=== PATIENT | male | born 1935 | race African-American/Black ===

== ENCOUNTER 2017-05-28 12:01 | Outpatient (CLI) | payer MEDICARE ==
--- NOTE | 2017-05-28 18:01 | RAD ---
CHEST TWO VIEWS: History: Dyspnea. Comparison: 10-05-16 FINDINGS: Cardiac silhouette and pulmonary vasculature are unremarkable. Coarsened interstitial markings are si milar in appearance to the prior study. Mediastinum is midline with post-operative changes, aortic ca lcification, and a dual-lead left subclavian cardiac electronic device. No lobar consolidation or pne umothorax are apparent. No pleural fluid. IMPRESSION: 1. Chronic type findings are stable. POS: [facility]
== END 2017-05-28 12:02 | disposition home or self-care (01) ==
LOC: RAD 12:01
PROVIDERS: ATTEND Internal Medicine Critical Care Medicine
DX: R06.00 Dyspnea, unspecified (principal)
CPT/HCPCS: 71020

== ENCOUNTER 2017-06-12 11:18 | Outpatient (CLI) | payer MEDICARE ==
--- NOTE | 2017-06-12 13:25 | RAD ---
ONE VIEW CHEST: TWO VIEWS ABDOMEN: 06/12/2017 COMPARISON: Offsite 05/28/2017 exam. FINDINGS: CHEST: Stable left-sided defibrillator. Stable sternotomy wires. Heart size is upper normal. Pulm onary vessels are within normal limits. Interstitial prominence, likely due to chronic change. No m ass. No consolidation. No pleural effusion or pneumothorax. ABDOMEN: Nonspecific bowel gas pattern. Scattered fecal material in a nondistended, nondilated colo n. No suspicious densities in the pelvis. There are densities projecting over the left and right re nal silhouette. Renal calculi cannot be completely excluded. No pneumoperitoneum. IMPRESSION: 1. No acute cardiopulmonary process. 2. Nonspecific bowel gas pattern. 3. Densities projecting over the left and right renal silhouette. Correlation made with CT from demonstrates vascular calcification in the region of the renal pelvis. POS: [facility]
== END 2017-06-12 11:19 | disposition home or self-care (01) ==
LOC: RAD 11:18
PROVIDERS: ATTEND Internal Medicine Gastroenterology
DX: K52.9 Noninfective gastroenteritis and colitis, unspecified (principal); R19.8 Other specified symptoms and signs involving the digestive system and abdomen; R10.31 Right lower quadrant pain; R06.2 Wheezing; E73.9 Lactose intolerance, unspecified
CPT/HCPCS: 74022

== ENCOUNTER 2017-11-15 10:57 | Outpatient (CLI) | payer MEDICARE | END 2017-11-15 10:58 | disposition home or self-care (01) | LOC: BICRAD 10:57 | PROVIDERS: ATTEND Internal Medicine Medical Oncology | DX: M76.22 Iliac crest spur, left hip (principal) | CPT/HCPCS: 72100; 72170 ==

== ENCOUNTER 2018-01-29 10:14 | Outpatient (CLI) | payer MEDICARE ==
--- NOTE | 2018-01-29 11:35 | RAD ---
CHEST TWO VIEWS: History: Dyspnea. Comparison: 05-28-17 FINDINGS: Cardiac silhouette and pulmonary vasculature remain upper limits of normal. Mediastinum midline with aortic calcification, post-operative changes, and a dual-lead left subclavian cardiac electronic abran ce. No lobar consolidation, pneumothorax, or pleural fluid. Wide spread reticular nodular interstitia l prominence is similar to the previous exam. IMPRESSION: Atherosclerosis. Chronic interstitial thickening. Chronic type findings are stable. POS: [facility]
== END 2018-01-29 10:15 | disposition home or self-care (01) ==
LOC: RAD 10:14
PROVIDERS: ATTEND Internal Medicine Critical Care Medicine
DX: R06.00 Dyspnea, unspecified (principal); I70.90 Unspecified atherosclerosis
CPT/HCPCS: 71046

== ENCOUNTER 2018-05-04 19:32 | Observation (INO) | payer MEDICARE ==
[2018-05-04 20:48] LABS: CKMB 4.4 ng/mL (0-6.6); Troponin I 0.027 ng/mL (< 0.028)
[2018-05-04] MEDS ORDERED: Acetaminophen 500 MG TAB ONE (21:00)
[2018-05-04 22:19] VITALS: BMI 28.3
[2018-05-05 00:03] LABS: Troponin I 0.022 ng/mL (< 0.028)
[2018-05-05] MEDS ORDERED: Senokot S 8.6-50 MG TAB PO PRN (00:17)
[2018-05-05] MEDS ORDERED: Ondansetron PF 4 MG/2 ML Vial IVP PRN (00:17)
[2018-05-05] MEDS ORDERED: Acetaminophen 325 MG TAB PO PRN (00:17)
[2018-05-05] MEDS ORDERED: Bisacodyl 5 MG TAB PO PRN (00:17)
--- NOTE | 2018-05-05 01:07 | PDOC.EVN ---
Event Note - Event Note Event Note: h&p dictation [id number]
--- NOTE | 2018-05-05 01:43 | HP ---
PRIMARY CARE PHYSICIAN: Erik Mejia DO FLOTATION TANK OPERATOR: Evelin Huffman MD UTILIZATION REVIEW NURSE: Isael Luz MD CHIEF COMPLAINT: Shortness of breath, particularly dyspnea with exertion. HISTORY OF PRESENT ILLNESS: This is an 83-year-old male with a known history of coronary artery dise ase, status post CABG x4, AICD placement; hypertension; asbestosis who presents with a 3 to 4-day his tory of progressive dyspnea on exertion with some chest pressure. The patient states that his sympto ms started after corn picking approximately 4 days ago and he had concomitant left-sided shoulder and neck pain as well. The patient states that his exertional pain and his musculoskeletal neck and rocco ulder pain are worse with movement and exertion. He has had prior similar episodes, but none "quite so bad." REVIEW OF SYSTEMS: As per HPI. Constitutional: The patient denies any overt fevers or chills. Den ies any significant weight loss or gain over the last 2 months. HEENT: No headaches, no vision maurer ges. No lightheadedness or dizziness at this point in time. Cardiovascular: Chest pain as describe d above. Dyspnea with exertion as described above. He has also got pinpoint reproducible musculoske letal wall discomfort along his left L5-L6 intercostal spaces. Respiratory: As per above. The delores ent also endorses having had a little bit of a "cold" that he is now getting over, over the last 4 to 5 days. Otherwise, no active congestion. Gastrointestinal: Denies any nausea, vomiting, abdominal pain. Denies any issues with constipation or diarrhea. Genitourinary: Denies any dysuria or navas es in urinary frequency, quality, quantity, or odor. Musculoskeletal: No new myalgias or arthralgia s other than that noted above. Remainder of the review of systems is otherwise negative. PAST MEDICAL HISTORY: As per HPI above and includes, 1. Hypertension. 2. Hyperlipidemia. 3. AICD placement for possible congestive heart failure. 4. Gastroesophageal reflux disease. 5. BPH. 6. Coronary artery disease, status post CABG. 7. Status post appendectomy. 8. Status post cholecystectomy. 9. Status post left foot surgery. 10. Status post back surgery. 11. The patient endorses a history of asbestosis, for which he sees Pulmonary Medicine. HOME MEDICATIONS: As per EMR. The patient's list currently includes the following: Tramadol 50 mg p.o. q.i.d. p.r.n., tamsulosin 0.4 mg p.o. at bedtime, rosuvastatin 20 mg p.o. at bedtime, ranitidine 300 mg p.o. b.i.d., potassium chloride 10 mEq p.o. daily, pantoprazole 40 mg p.o. daily, lisinopril 10 mg p.o. daily, furosemide 40 mg p.o. daily, finasteride 5 mg p.o. at bedtime, clopidogrel 75 mg p. o. daily, carvedilol 12.5 mg p.o. b.i.d., aspirin 325 mg p.o. daily, albuterol sulfate 90 mcg inhalat ion daily. FAMILY HISTORY: Denies any known history of cardiovascular disease, but does have a family history o f diabetes. ALLERGIES: IODINE. SOCIAL HISTORY: The patient is . He wishes to be FULL CODE at this point in time, but would not want to be maintained indefinitely on machine. Denies any active tobacco, alcohol, or illicit dr ug use. PHYSICAL EXAMINATION: GENERAL: The patient is awake, alert, conversant, in no acute distress, lying in the hospital bed. HEENT: Normocephalic, atraumatic. Equal ocular motions are intact. Moist mucous membranes. CARDIOVASCULAR: S1, S2. No murmurs, rubs, or gallops. Pulses 2+ in bilateral upper extremities. N o pitting pedal edema. RESPIRATORY: Coarse throughout, but reasonable air movement. No wheezes, rales, or rhonchi. ABDOMEN: Positive bowel sounds. Soft and nontender to palpation. LABORATORY DATA AND IMAGIN05/04/2018 chest x-ray impression: "Unremarkable AP view of chest." W BC 5.7, hemoglobin 15.1, hematocrit 45, platelets 203, neutrophils 85.3. Sodium 138, potassium 4.6, chloride 107, bicarbonate 21, creatinine 1.36, glucose 206, calcium 9.2, total bilirubin 0.4, AST 19, ALT 20, alkaline phosphatase 53. Troponin is 0.033, followup 0.022. BNP 329 with a prior BNP value s typically anywhere ranging from 100s to upper 200s for the patient. ASSESSMENT AND PLAN: An 83-year-old male presenting with a chief complaint of dyspnea with exertion. 1. Dyspnea with exertion, which is currently improved status post [facility] [place]. The patient presumably has a history of heart failure. He has an AICD p laced. He has a prior history of coronary artery disease. I suspect that the patient has some outpa tient echocardiograms, but I am not clear how recent they are. I appreciate Cardiology consultation. Repeat troponin, EKG in the morning, echocardiogram 2D. The patient's home medications are current ly being verified with the patient's pharmacy. In the meantime, we will continue with furosemide 20 mg IV b.i.d. along with low-dose lisinopril, carvedilol, aspirin, and statin. 2. Question of perhaps whether or not there is a pulmonary component to the patient's presentation. Continue to closely monitor. The patient is currently not hypoxic. 3. Hypertension, stable. Continue home regimen. 4. Diet: Cardiac. 5. Activity: As tolerated. 6. Deep venous thrombosis prophylaxis with enoxaparin.
[2018-05-05 03:18] LABS: Troponin I 0.026 ng/mL (< 0.028)
[2018-05-05 05:12] LABS: #Eosinphils 0.1 thou/uL (0.0-0.7); #Lymphocytes 1.3 thou/uL (1.20-3.40); #Neutrophils 5.9 thou/uL (1.40-6.50); %Basophils 0.2 % (0.0-1.0); %Eosinophils 0.8 % (0.0-10.0); %Lymphocytes 15.7 % (21.0-51.0); %Monocytes 12.3 % (0.0-10.0); %Neutrophils 71.1 % (42.0-75.0); Hemoglobin 13.8 g/dL (14.0-18.0); Mean Corpuscular HGB CONC 31.7 g/dL (32.0-36.0); Mean Corpuscular Hemoglobin 29.2 pg (27.0-31.0); Mean Corpuscular Volume 92.1 fL (78.0-98.0); Mean Platelet Volume 8.3 fL (7.4-10.4); Platelet Count 209 thou/uL (130-400); RBC Distribution Width 14.1 % (11.5-14.5); Red Blood Cell (RBC) Count 4.72 mill/uL (4.70-6.10); White Blood Cell (WBC) Count 8.4 thou/uL (4.8-10.8)
[2018-05-05 05:24] LABS: Anion Gap 11 mmol/L (10-20); BUN (Urea Nitrogen) 17 mg/dL (8.4-25.7); Calc. Creatinine Clearance 55 mL/min (70-130); Calcium 8.9 mg/dL (7.8-10.44); Carbon Dioxide 25 mmol/L (23-31); Chloride 105 mmol/L (98-107); Estimated GFR-MDRD 69; Glucose 132 mg/dL (83-110); Potassium 4.1 mmol/L (3.5-5.1); Sodium 137 mmol/L (136-145)
[2018-05-05] MEDS ORDERED: Naproxen 500 MG TAB PO PRN (05:25)
[2018-05-05] MEDS: Furosemide 20 MG/2 ML VIAL SLOW IVP SCH ×2 (05:30→14:11)
[2018-05-05] MEDS: Lisinopril 2.5 MG TAB PO SCH (08:04)
[2018-05-05] MEDS: Carvedilol 3.125 MG TAB PO SCH ×2 (08:04→20:59)
[2018-05-05] MEDS: Famotidine/PF 20 mg/2ml Vial SLOW IVP SCH ×2 (08:05→21:01)
[2018-05-05] MEDS: Enoxaparin Sodium 40 MG/0.4 ML SYRINGE SC SCH (08:05)
--- NOTE | 2018-05-05 11:00 | PDOC.EVN ---
Event Note - Event Note Event Note: Pt seen and examined.chart reviewed. reports that he feels about the same.Has Significant SOB at home when he bends down or walks. VSS CTA B/L.no wheezing RRR ECHO ordered. cardiology & PCCM recs requested.Will follow Cont Lasix BID for now but doubt much Edema.May be worsening of Chr lung disease. HD stable. will follow
--- NOTE | 2018-05-05 12:13 | CON ---
DATE OF CONSULTATION: 05/05/2018 REASON FOR CONSULTATION: Shortness of breath. HISTORY OF PRESENT ILLNESS: Mr. Patrick Kang is a very pleasant 83-year-old gentleman whose primary lead developer is Dr. Evelin Huffman. He was last seen in the hospital in 2016. He has a previous his tory of CAD, status post bypass surgery in addition to a defibrillator. He states his shortness of b reath began in the last several days. No changes in diet present. He had had no lower extremity carol ma, PND, or orthopnea present. He also complained of having weakness in his legs bilaterally. He lloyd s a history of asthma in addition to asbestosis in addition congestive heart failure. His BNP was 32 9. PAST MEDICAL HISTORY: As above including hypertension. ALLERGIES: IODINE. MEDICATIONS: Aspirin, Coreg, Plavix, Lasix, Crestor, and Symbicort. SOCIAL HISTORY: No current tobacco or alcohol use. REVIEW OF SYSTEMS: Ten-point review of systems is reviewed and as above, otherwise negative. PHYSICAL EXAMINATION: GENERAL: Patient is a pleasant male/female who is in no acute distress. The patient appears his/her stated age. VITAL SIGNS: Blood pressure 125/64, pulse 70, temperature 98. NEUROLOGIC: The patient is alert and oriented times 3 with no focal neurologic deficits. HEENT: Sclerae without icterus. Mouth has moist mucous membranes with normal pallor. NECK: No JVD. Carotid upstroke brisk. No bruits bilaterally. LUNGS: Minimal crackles noted bilaterally. BACK: No scoliosis or kyphosis. CARDIAC: Regular rate and rhythm with normal S1 and S2. No S3 or S4 noted. No significant rubs, murmurs, thrills, or gallops noted throughout the precordium. PMI is not displaced. There is no parasternal heave. ABDOMEN: Soft, nontender, nondistended. No peritoneal signs present. No hepatosplenomegaly. No abnormal striae. EXTREMITIES: 2+ femoral and 2+ dorsalis pedis pulses. No cyanosis, clubbing, or edema. SKIN: No gross abnormalities. LABORATORY DATA: Hemoglobin 13.8, glucose 132. Sodium 137, potassium 4.1, creatinine 1.2. IMPRESSION: 1. Shortness of breath. 2. Leg weakness. 3. Coronary artery disease. 4. Status post Implantable Cardioverter-Defibrillator. 5. Ischemic cardiomyopathy. 6. Status post bypass surgery. RECOMMENDATIONS: From a CV standpoint, he states he has improved. He was given Lasix with improveme nt in shortness of breath. His shortness of breath may be multifactorial given a BNP of 329. He laughlin s have asthma in addition to asbestosis. Dr. Luz has been consulted. Otherwise, I have no further recommendations.
[2018-05-05] MEDS ORDERED: methylPREDNISolone Sod Succ/PF 125 MG/2 ML VIAL IVP SCH (13:45)
--- NOTE | 2018-05-05 19:27 | CON ---
DATE OF CONSULTATION: 05/05/2018 I follow him for asthmatic bronchitis. He also has obesity and deconditioning. He is also followed by Dr. Huffman. He presented with 3 days of progressive shortness of breath. He was out picking up pecans and says he reached a point where he could no longer breathe and subsequently was admitted here. He says, he feels 100% better than when he did on admission. PAST MEDICAL HISTORY: Remarkable for, 1. Hypertension. 2. He has moderate obstructive defect with mixed restriction secondary to his obesity on pulmonary function tests. 3. Increase interstitial markings. In chest radiograph, it has not been progressive, arguing against him having a diagnosis of asbestosis (he has a history of an exposure). 4. History of coronary artery disease. 5. Coronary artery bypass grafting in the past. 6. History of ventricular tachycardia with defibrillator placement in the past. 7. History of cardiac catheterization in 2002 showing patent grafts. 8. History of reflux disease. 9. Renal insufficiency. 10. History of syncope. ALLERGIES: Reports an allergy to IODINE. SOCIAL HISTORY: He is a former smoker, does not drink, very supportive . FAMILY HISTORY: Negative for lung disease in early age. REVIEW OF SYSTEMS: Ten points otherwise negative. PHYSICAL EXAMINATION: VITAL SIGNS: He is afebrile, heart rate 70, respiratory rate 16, oximetry is 93 on room air. Blood pressure 125/64. LUNGS: Free of wheezes. I do not hear any crackles. HEART: Regular rhythm. S1 and S2 are normal. ABDOMEN: Soft and nontender. EXTREMITIES: Without clubbing, cyanosis, or edema. LABORATORY DATA: White count 8.4, hemoglobin 13.8, platelets 209,000. Electrolytes are normal. BNP yesterday was 329. IMPRESSION: 1. Asthmatic bronchitis. He is clinically improved. 2. History of coronary artery bypass grafting with patent grafts in the past. 3. History of defibrillator. 4. Ischemic cardiomyopathy. It is unclear whether or not Lasix alone contributed to his improvement or the nebulizer treatments, decreased shortness of breath. In any event, he is clinically improved. We will be happy to follow with the other physicians caring for him. Chest radiograph review done in [place] yesterday afternoon did not really show clear cut pulmonary edema, so it may be that this is more asthmatic bronchitis mediated. [facility]
[2018-05-06 05:13] LABS: Anion Gap 12 mmol/L (10-20); BUN (Urea Nitrogen) 21 mg/dL (8.4-25.7); Calc. Creatinine Clearance 50 mL/min (70-130); Carbon Dioxide 24 mmol/L (23-31); Chloride 102 mmol/L (98-107); Estimated GFR-MDRD 61; Glucose 220 mg/dL (83-110); Magnesium 2.1 mg/dL (1.6-2.6); Phosphorus 2.7 mg/dL (2.3-4.7); Potassium 4.2 mmol/L (3.5-5.1); Sodium 134 mmol/L (136-145)
[2018-05-06] MEDS: Furosemide 20 MG/2 ML VIAL SLOW IVP SCH (06:34)
--- NOTE | 2018-05-06 07:11 | PRG ---
DATE OF SERVICE: 05/06/2018 SUBJECTIVE: He says he is feeling much better. OBJECTIVE: VITAL SIGNS: He is afebrile, heart rate is 82, respiratory rate is 19, oximetry is 94% on room air, blood pressure 132/70. LUNGS: Clear. HEART: Regular rhythm. ABDOMEN: Soft and nontender. LABORATORY DATA: There is no CBC today. Sodium 134, potassium 4.2, chloride 102, bicarbonate 24, BU N 21, creatinine 1.34 up from 1.21, glucose 220. IMPRESSION: 1. Asthmatic bronchitis. 2. History of diastolic dysfunction. Echocardiogram is reviewed. His left ventricular systolic is still normal. He does have moderate mitral regurgitation, which may have contributed opinion to some of his symptoms. I feel this is more of a pulmonary problem consistent with past outpatient episode s. We will continue with current care. He can probably be switched to p.o. diuretics. We will continue with his nebulizer treatments, which he feels are helping. Place him on some prednisone today.
[2018-05-06] MEDS ORDERED: predniSONE 20 MG TAB PO SCH (08:00)
[2018-05-06] MEDS: Famotidine/PF 20 mg/2ml Vial SLOW IVP SCH (08:29)
[2018-05-06] MEDS: Carvedilol 3.125 MG TAB PO SCH (08:29)
[2018-05-06] MEDS: Enoxaparin Sodium 40 MG/0.4 ML SYRINGE SC SCH (08:29)
[2018-05-06] MEDS: Lisinopril 2.5 MG TAB PO SCH (08:29)
[2018-05-06] MEDS ORDERED: Non-Formulary Item 1 EACH (Omeprazole [Omeprazole] 20 MG) PO PRN (08:37)
[2018-05-06] MEDS ORDERED: traMADol HCl 50 MG TAB PO PRN (08:37)
[2018-05-06] MEDS ORDERED: Lisinopril 10 MG TAB PO PRN (08:37)
[2018-05-06] MEDS ORDERED: Nitroglycerin 0.4 MG TAB (25 Tab Bottle) SL PRN (08:37)
[2018-05-06] MEDS ORDERED: Clopidogrel Bisulfate 75 MG TAB PO SCH (09:00)
[2018-05-06] MEDS ORDERED: CARVEDILOL 18.75 MG PO SCH (09:00)
[2018-05-06] MEDS ORDERED: Potassium Chloride 10 MEQ TAB PO SCH (09:00)
[2018-05-06] MEDS ORDERED: Aspirin 325 MG TAB PO SCH (09:00)
[2018-05-06] MEDS ORDERED: Furosemide 20 MG TAB PO SCH (09:00)
[2018-05-06 11:41] VITALS: BP 135/77; TEMP 98.2
--- NOTE | 2018-05-06 12:02 | EKG ---
Test Reason : ROUTINE Blood Pressure : / mmHG Vent. Rate : 068 BPM Atrial Rate : 068 BPM P-R Int : 188 ms QRS Dur : 094 ms QT Int : 440 ms P-R-T Axes : 031 031 218 degrees QTc Int : 467 ms Normal sinus rhythm Prolonged QT Abnormal ECG Confirmed by SUSY WELDON ([id number]) on 05/06/2018 12:02:03 PM Referred By: ERINN Confirmed By:SUSY WELDON
--- NOTE | 2018-05-06 13:44 | DIS ---
DATE OF ADMISSION: 05/05/2018 DATE OF DISCHARGE: 05/06/2018 CONDITION AT THE TIME OF DISCHARGE: Stable and improved. PRIMARY CARE PHYSICIAN: Erik Mejia D.O. PRIMARY BELLING MACHINE OPERATOR: Isael Luz M.D. DISCHARGE DIAGNOSES: 1. Shortness of breath, likely mild fluid overload versus reactive airway disease with and without a sthmatic bronchitis. 2. Hypertension. 3. History of coronary artery disease. 4. Chronic diastolic congestive heart failure. INHOUSE CONSULTATIONS: 1. Cardiology, Adama Temple M.D. 2. Pulmonary Medicine, Isael Luz M.D.. PROCEDURES DONE IN THE HOSPITAL: Transthoracic echocardiogram, which shows EF of 55-60%, moderate mi tral regurgitation and left atrial dilatation. DISCHARGE MEDICATIONS: Remain the same as admission medication. Please see his H&P for further deta il. NEW MEDICATIONS: Medrol Dosepak 1 pack as directed. The patient has nebulizers at home which he eliceo l continue to use. HISTORY OF PRESENTING ILLNESS: Mr. 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 He reported that this has been mostly the case, but it was getting worse for the last few days. Upon presentation, he was hemodynamically stable and his chest x-ray in initial workup was rather unremarkable. His BNP was 329 and his CBC shows WBCs at 5.7. Hi s serum creatinine was 1.36. Chest x-ray and EKG were rather unremarkable. He was admitted with a p resumptive diagnosis of mild acute on chronic diastolic congestive heart failure. Please see admissi on history and physical for further details. Cardiology and Pulmonary Medicine were consulted. HOSPITAL COURSE: The patient's symptoms quickly improved with some diuresis. His Lasix was changed to oral eventually. His serial cardiac enzymes were trended and remained within normal limits. Dr. Temple from Cardiology saw him and agreed with continuation of diuresis for a short period of time and then outpatient followup. Echocardiogram was done which showed findings consistent with possibl e diastolic congestive heart failure. He was also seen by Pulmonary Medicine, Dr. Luz, who added steroids and continue nebulizers. As of this morning, the patient is back to his baseline and is saturating anywhere from 94-96% on latoya m air and is hemodynamically stable. He will be discharged with outpatient followup with both Dr. Dharmesh martinez and Dr. Luz. Prescription for Medrol Dosepak was provided as per Dr. Luz's instruction. He was seen and examined prior to discharge. PHYSICAL EXAMINATION: VITAL SIGNS: Temperature 98.2, pulse 84, respirations 24, saturating 94% on room air, blood pressure 135/77. GENERAL: No acute distress. Awake, alert, oriented x3. CHEST: Clear to auscultation bilaterally. No wheezing. Rate and rhythm is regular. EXTREMITIES: Free of any edema.
[2018-05-06] MEDS ORDERED: Rosuvastatin 10 MG TAB PO SCH (21:00)
[2018-05-06] MEDS ORDERED: Carvedilol 6.25 MG TAB PO SCH (21:00)
[2018-05-06] MEDS ORDERED: Tamsulosin HCl 0.4 MG CAP PO SCH (21:00)
[2018-05-06] MEDS ORDERED: Rosuvastatin 20 MG TAB PO SCH (21:00)
== END 2018-05-06 15:20 | disposition home or self-care (01) ==
LOC: ERS 19:32 → 2SW 21:53
PROVIDERS: ADMIT Internal Medicine; ATTEND Internal Medicine
DX: R06.02 Shortness of breath (principal); R07.89 Other chest pain; I25.10 Atherosclerotic heart disease of native coronary artery without angina pectoris; J61 Pneumoconiosis due to asbestos and other mineral fibers; E78.5 Hyperlipidemia, unspecified; K21.9 Gastro-esophageal reflux disease without esophagitis; N40.0 Benign prostatic hyperplasia without lower urinary tract symptoms; I25.5 Ischemic cardiomyopathy; J45.909 Unspecified asthma, uncomplicated; I11.0 Hypertensive heart disease with heart failure; I50.32 Chronic diastolic (congestive) heart failure; R29.91 Unspecified symptoms and signs involving the musculoskeletal system; E66.9 Obesity, unspecified; Z68.28 Body mass index [BMI] 28.0-28.9, adult; Z87.891 Personal history of nicotine dependence; Z79.02 Long term (current) use of antithrombotics/antiplatelets; Z79.82 Long term (current) use of aspirin; Z79.899 Other long term (current) drug therapy; Z91.041 Radiographic dye allergy status; Z95.1 Presence of aortocoronary bypass graft; Z95.810 Presence of automatic (implantable) cardiac defibrillator
CPT/HCPCS: 80048 ×2; 82553; 83735; 84100; 84484 ×2; 85025; 93005 ×2; 93306; 94640 ×3; 96372; 96374; 96375; 96376 ×2; 99285; G0378 ×2; 36415; 90471; 90662; 93010; G0008; J1650; J1940; J2930; J7506; J7620; S0028

== ENCOUNTER 2018-09-19 09:16 | Outpatient (CLI) | payer MEDICARE ==
--- NOTE | 2018-09-19 12:05 | CT ---
CT OF THE TEMPORAL BONES: DATE: 09/19/2018. COMPARISON: None. HISTORY: Sensorineural hearing loss bilaterally. TECHNIQUE: Axial CT imaging is obtained at 0.63 mm intervals through the temporal ones without contrast media. Coronal reformatted imaging provided. FINDINGS: There is atherosclerotic calcification of the cavernous carotid arteries. There is prominent degener ative change at the atlantoaxial interspace. There is atherosclerotic calcification of the distal ve rtebral arteries bilaterally. RIGHT TEMPORAL BONE: The internal auditory canal, cochlea, vestibule, vestibular aqueduct, and semicircular canals appear grossly unremarkable. The course of the facial nerve appears grossly unremarkable. Vascular foramina appear within normal limits. The tympanic cavity, mastoid air cells, and aditus ad antrum appear well aerated. The ossicles appear intact. Prussak's space is clear. The scutum is sharp. No evidence for osseous dehiscence. LEFT TEMPORAL BONE: The internal auditory canal, cochlea, vestibule, vestibular aqueduct, and semicircular canals appear grossly unremarkable. The course of the facial nerve appears normal. The mastoid air cells, tympanic cavity, and aditus ad antrum are well aerated. The ossicles appear i ntact. The vascular foramina appear grossly unremarkable. There is degenerative change at the temporomandibular joint. Prussak's S space is clear and the scutum is sharp. No evidence for osseous dehiscence. IMPRESSION: No abnormality noted to explain a sensorineural hearing loss. Incidental findings as detailed above. POS: [facility]
== END 2018-09-19 09:17 | disposition home or self-care (01) ==
LOC: CT 09:16
PROVIDERS: ATTEND Specialist
DX: H90.3 Sensorineural hearing loss, bilateral (principal)
CPT/HCPCS: 70480

== ENCOUNTER 2019-01-14 08:35 | Outpatient (CLI) | payer MEDICARE ==
--- NOTE | 2019-01-14 10:37 | RAD ---
CHEST 2 VIEWS: INDICATION: History of dyspnea. COMPARISON: Prior single view of the chest dated 11/04/2018. FINDINGS: Chronic lung changes and cardiomegaly are stable. AICD is unchanged. No confluent airspace opacity or pleural effusion is noted. Surgical clips are present within the right upper quadrant. IMPRESSION: Stable examination. POS: [facility]
== END 2019-01-14 08:36 | disposition home or self-care (01) ==
LOC: RAD 08:35
PROVIDERS: ATTEND Internal Medicine Critical Care Medicine
DX: R06.00 Dyspnea, unspecified (principal)
CPT/HCPCS: 71046

== ENCOUNTER 2019-04-20 11:18 | Inpatient (IN) | payer MEDICARE ==
[2019-04-20 14:36] LABS: CKMB 102.2 ng/mL (0-6.6)
[2019-04-20] MEDS ORDERED: Ondansetron ODT 4 MG TAB SL PRN (16:00)
[2019-04-20] MEDS ORDERED: Ondansetron PF 4 MG/2 ML Vial IVP PRN (16:00)
[2019-04-20] MEDS ORDERED: Furosemide 40 MG/4 ML VIAL SLOW IVP SCH (16:15)
[2019-04-20 16:25] VITALS: BMI 27.4
[2019-04-20] MEDS ORDERED: Morphine 4 MG/ML VIAL SLOW IVP PRN (16:49)
[2019-04-20] MEDS ORDERED: PROVENTIL INHALER 6.7 G (200 INHALATIONS) INH PRN (17:11)
--- NOTE | 2019-04-20 18:21 | HP ---
PRIMARY CARE PHYSICIAN: Dr. Mejia. ELECTRICIAN STATION ASSISTANT: Dr. Huffman. SUPERVISOR FUNCTIONAL TESTING: Dr. Luz. CHIEF COMPLAINT: Chest pain, shortness of breath, dyspnea on exertion. HISTORY OF PRESENT ILLNESS: Mr. Nguyen is an 84-year-old man with past medical history of hypertension, hyperlipidemia, coronary artery disease, status post CABG with an AICD in place, gastroesophageal reflux disease, presented to an outside [place] ED earlier today due to worsening chest pain, shortness of breath, and generalized weakness over the last two days, he states that the pain started about Sunday, got better Sunday morning, however, worsened throughout Sunday night and through this morning. When he was seen in [place], it was determined the patient had suffered an NSTEMI with elevated cardiac enzymes of 8.017. The patient was treated with a therapeutic dose of Lovenox, IV Lasix 20 mg, full-dose aspirin, and nitroglycerin. The patient's symptoms resolved, and he was transferred to [facility] for further management of his current condition. Upon arriving, the patient denied any fever, chills, any headache, blurred vision, dizziness, any chest pain, palpitations, shortness of breath, abdominal pain, nausea, or vomiting. The patient remained on 2 L of oxygen via nasal cannula, and his cardiac enzymes trended up to 13.083 and CK-MB elevated at 102.2, Dr. Leblanc, admissions specialist, was then consulted to follow along with the patient's case. REVIEW OF SYSTEMS: All other systems reviewed and found to be negative unless mentioned in the HPI. PAST MEDICAL HISTORY: Hypertension, hyperlipidemia, coronary artery disease, gastroesophageal reflux disease, BPH, and CHF. PAST SURGICAL HISTORY: Appendectomy, AICD placement, cholecystectomy, left foot surgery, back surgery, coronary artery bypass graft surgery x4 vessels. PSYCHIATRIC HISTORY: None. SOCIAL HISTORY: The patient denies alcohol, tobacco, or illicit drug use. He is a former smoker, but quit about 35 years ago. KNOWN ALLERGIES: Iodine. CURRENT HOME MEDICATIONS: 1. Clopidogrel 75 mg daily. 2. Furosemide 20 mg daily. 3. Nitroglycerin 0.4 mg sublingual q.5 minutes as needed for chest pain. 4. Rosuvastatin 20 mg q.h.s. 5. Tizanidine 2 mg t.i.d. 6. Albuterol sulfate 90 mcg inhalation b.i.d. 7. Carvedilol 12.5 mg daily. 8. Ipratropium/albuterol 3 mL nebulizer q.6 hours. 9. Lisinopril 2.5 mg daily. 10. Tamsulosin 0.4 mg daily. PHYSICAL EXAMINATION: VITAL SIGNS: Blood pressure 126/76, pulse 87, respirations 18, temperature 97.5, and O2 saturation 97% on 2 L of oxygen via nasal cannula. GENERAL: The patient is awake, alert, and oriented x3. He is currently lying comfortably in bed and in no acute distress. HEENT: Atraumatic and normocephalic. Pupils are round and reactive to light. Extraocular muscles intact. Moist mucous membranes noted. The patient is hard of hearing. NECK: Soft, supple, trachea midline. CARDIOVASCULAR: Positive S1 and S2. Regular rate and rhythm. No murmur auscultated. RESPIRATORY: Coarse breath sounds heard bilaterally with expiratory wheezing noted. ABDOMEN: Soft, nontender, bowel sounds present. MUSCULOSKELETAL: Strength 5+ bilaterally in upper and lower extremities. Moves all extremities equal. Pedal and radial pulses 2+ bilaterally. No edema noted. NEUROLOGIC: Strength 5+ bilaterally in upper and lower extremities. Cranial nerves 2 through 12 grossly intact. No focal deficits noted. Speech intact and normal. Gait not assessed. The patient is quite hard of hearing. SKIN: Warm, dry, and intact. No rashes. No ulceration noted. PSYCHIATRIC: Good mood and affect. LABORATORY DATA: WBC 4.5, RBC 4.77, hemoglobin 13.7, hematocrit 44.9, and platelets 202. Sodium 140, potassium 3.9, anion gap 15, BUN 12, creatinine 1.60, estimated GFR 50. CK-MB 102.2. Troponin 8.017, trended up to 13.083. DIAGNOSTIC IMAGING: Portable chest x-ray showed signs of congestive heart failure with an AICD in place. ASSESSMENT AND PLAN: 1. Lmc-XL-fnhfhlwft myocardial infarction. The patient's cardiac enzymes were elevated, first was 8.017, which had trended up to 13.083, CK-MB 102.2. The patient was treated with therapeutic dose of Lovenox, aspirin, and nitro, we will also start on IV morphine as needed for pain. Cardiology, Dr. Leblanc, is also consulted, we will obtain an echocardiogram and recheck labs and an EKG in the morning. Currently, the patient is asymptomatic and is currently chest pain free. 2. Congestive heart failure exacerbation. He will be treated symptomatically with IV furosemide 20 mg b.i.d. 3. Hypertension. 4. Hyperlipidemia. 5. History of coronary artery disease, status post coronary artery bypass grafting x4 vessel, as above consult Cardiology for further recommendations. 6. Deep venous thrombosis and gastrointestinal prophylaxis. 7. Code status, full code. 8. Surrogate decision maker is his , Joo Nguyen. DISPOSITION: Pending further workup, clinical findings, and the patient's progress. Job ID: [id number]
[2019-04-20] MEDS: Atorvastatin Calcium 40 MG TAB PO SCH (20:29)
[2019-04-20] MEDS: Enoxaparin Sodium 80 MG/0.8 ML SYRINGE SC SCH (20:29)
[2019-04-21 06:04] LABS: #Eosinphils 0.3 thou/uL (0.0-0.7); #Lymphocytes 1.7 thou/uL (1.20-3.40); #Monocytes 0.7 thou/uL (0.11-0.59); #Neutrophils 2.4 thou/uL (1.40-6.50); %Basophils 0.4 % (0.0-1.0); %Eosinophils 5.5 % (0.0-10.0); %Lymphocytes 32.6 % (21.0-51.0); %Monocytes 13.9 % (0.0-10.0); %Neutrophils 47.6 % (42.0-75.0); Hemoglobin 14.6 g/dL (14.0-18.0); Mean Corpuscular Hemoglobin 30.5 pg (27.0-31.0); Mean Corpuscular Volume 92.3 fL (78.0-98.0); Mean Platelet Volume 8.2 fL (7.4-10.4); Platelet Count 210 thou/uL (130-400); RBC Distribution Width 13.7 % (11.5-14.5); Red Blood Cell (RBC) Count 4.78 mill/uL (4.70-6.10)
[2019-04-21 06:37] LABS: Anion Gap 15 mmol/L (10-20); BUN (Urea Nitrogen) 12 mg/dL (8.4-25.7); Calc. Creatinine Clearance 51 mL/min (70-130); Calcium 9.3 mg/dL (7.8-10.44); Carbon Dioxide 21 mmol/L (23-31); Cardiac Risk 3.7 (Less than 4.5); Chloride 105 mmol/L (98-107); Cholesterol 126 mg/dl (< 200 Desired); Estimated GFR-MDRD 66; Glucose 96 mg/dL (83-110); HDL Cholesterol 34 mg/dL (>60 Neg Risk); LDL Cholesterol, Calculated 78 mg/dL; Magnesium 1.9 mg/dL (1.6-2.6); Potassium 3.7 mmol/L (3.5-5.1); Sodium 137 mmol/L (136-145); Triglycerides 68 mg/dL (Less than 150)
[2019-04-21] MEDS ORDERED: FLU VACC TS2019-20(65YR UP)/PF 180 MCG/0.5 ML SYRINGE IM ONE (09:00)
[2019-04-21] MEDS ORDERED: Prevnar 13-Val Conj/PF 0.5 ML SYRINGE IM ONE (09:00)
[2019-04-21] MEDS ORDERED: Carvedilol 6.25 MG TAB PO SCH (09:00)
[2019-04-21] MEDS: Lisinopril 2.5 MG TAB PO SCH (09:05)
[2019-04-21] MEDS: Aspirin 325 mg Enteric Coated Tablet PO SCH (09:05)
[2019-04-21] MEDS: Enoxaparin Sodium 80 MG/0.8 ML SYRINGE SC SCH ×2 (09:07→22:53)
[2019-04-21] MEDS: Tamsulosin HCl 0.4 MG CAP PO SCH (09:07)
--- NOTE | 2019-04-21 17:12 | PDOC.HOSPP ---
- Subjective Encounter Date: 04/21/19 Encounter Time: 07:00 Subjective: Pt was seen for followup re: NSTEMI. No complaints today. - Objective Vital Signs & Weight: Vital Signs (12 hours) Temp Pulse Resp BP BP Pulse Ox 04/21/19 15:42 97.6 F 70 20 86/54 L 95 04/21/19 11:30 98.4 F 72 18 92/53 L 92 L 04/21/19 09:06 113/62 04/21/19 09:05 81 04/21/19 07:44 98.2 F 81 16 113/62 93 L Weight Weight 186 lb 1.6 oz I&O: 04/20/19 04/21/19 04/22/19 06:59 06:59 06:59 Intake Total 120 480 Output Total 1000 Balance -880 480 Result Diagrams: 04/21/19 05:36 04/21/19 05:36 Additional Labs: Labs and MARs reviewed by me EKG Reviewed by me: Yes (Tele: NSR) Hospitalist ROS - Review of Systems Cardiovascular: denies: chest pain, palpitations, orthopnea, paroxysmal noc. dyspnea, edema, light headedness Gastrointestinal: denies: nausea, vomiting, abdominal pain, diarrhea, constipation, melena, hematochezia - Medication Medications: Active Medications Generic Name Dose Route Start Last Admin Trade Name Freq PRN Reason Stop Dose Admin Albuterol/Ipratropium 3 ml 04/20/19 17:06 04/20/19 21:39 Duoneb NEB 3 ml Q6H PRN Administration Wheezing Aspirin 325 mg 04/21/19 09:00 04/21/19 09:05 Ecotrin PO 325 mg DAILY JUICE Administration Atorvastatin Calcium 40 mg 04/20/19 21:00 04/20/19 20:29 Lipitor PO 40 mg HS JUICE Administration Carvedilol 12.5 mg 04/21/19 09:00 04/21/19 09:06 Coreg PO 12.5 mg DAILY JUICE Administration Enoxaparin Sodium 85 mg 04/20/19 21:00 04/21/19 09:07 Lovenox SC 85 mg 0900,2100 JUICE Administration Lisinopril 2.5 mg 04/21/19 09:00 04/21/19 09:05 Zestril PO 2.5 mg DAILY JUICE Administration Tamsulosin HCl 0.4 mg 04/21/19 09:00 04/21/19 09:07 Flomax PO 0.4 mg DAILY JUICE Administration - Exam General Appearance: NAD Eye: anicteric sclera ENT: moist mucosa Neck: supple, symmetric Heart: RRR, no rubs Respiratory: CTAB, no rales Gastrointestinal: soft, non-tender Neurological: no weakness Psychiatric: normal affect, normal behavior Hosp A/P (1) NSTEMI (non-ST elevated myocardial infarction) Code(s): I21.4 - NON-ST ELEVATION (NSTEMI) MYOCARDIAL INFARCTION Status: Acute (2) BPH (benign prostatic hyperplasia) Code(s): N40.0 - BENIGN PROSTATIC HYPERPLASIA WITHOUT LOWER URINRY TRACT SYMP Status: Chronic (3) Chronic diastolic congestive heart failure, NYHA class 2 Code(s): I50.32 - CHRONIC DIASTOLIC (CONGESTIVE) HEART FAILURE Status: Chronic (4) COPD (chronic obstructive pulmonary disease) Status: Chronic (5) Hyperlipidemia Code(s): E78.5 - HYPERLIPIDEMIA, UNSPECIFIED Status: Chronic (6) Hypertension Code(s): I10 - ESSENTIAL (PRIMARY) HYPERTENSION Status: Chronic - Plan continue aspirin and therapeutic Lovenox, await cardiology input. BPH stable, continue tamsulosin. COPD stable. Pt received furosemide. BP controlled.
--- NOTE | 2019-04-21 18:59 | CON ---
DATE OF CONSULTATION: HISTORY OF PRESENT ILLNESS: The patient is an 84-year-old gentleman with a history of coronary bypass graft surgery, who presented with recurrent chest discomfort. The patient has a previous history of coronary bypass graft surgery x4. He also has had placement of an automatic implantable cardiac defibrillator. The patient has been admitted on several occasions with congestive heart failure. He was in usual state of health when he developed left-sided chest discomfort. He presented to the emergency room with eventual resolution of his chest pain. The patient denies having any present chest discomfort. PAST MEDICAL HISTORY: 1. Coronary artery disease. 2. Hypertension. 3. Dyslipidemia. 4. Peripheral vascular disease. 5. Congestive heart failure. ALLERGIES: HE IS ALLERGIC TO IODINE. SOCIAL HISTORY: He is a former smoker. FAMILY HISTORY: Positive family history of coronary artery disease. PHYSICAL EXAMINATION: GENERAL AND VITAL SIGNS: Obese gentleman, no acute distress with a blood pressure of 86/54. NECK: Showed no jugular venous distention. LUNGS: Clear to auscultation. HEART: Regular rate and rhythm. Normal S1, S2. No murmurs. ABDOMEN: Nondistended. EXTREMITIES: Show no edema. VASCULAR: Radial pulses are 2+. LABORATORY DATA: Sodium 137, potassium 3.7, chloride 105, bicarbonate 21, BUN 12, creatinine 1.26, and glucose is 96. Troponin was 13. White blood cell count 5.0, hemoglobin 14.6, hematocrit 44.1, and platelets are 210. His EKG revealed normal sinus rhythm with an ST-T wave abnormality suggestive of ischemia. IMPRESSION: 1. Non-Q-wave myocardial infarction. 2. History of coronary artery bypass surgery x3. 3. History of peripheral vascular disease. 4. History of automatic implantable cardioverter-defibrillator placement. 5. Dyslipidemia. This gentleman presents with a non-Q-wave myocardial infarction. From a Cardiac standpoint, he is being treated with aspirin and Lovenox. An echocardiogram will be obtained. Further recommendation will follow. Please call my office. Job ID: [id number]
[2019-04-21] MEDS ORDERED: predniSONE 20 MG TAB PO SCH (20:45)
[2019-04-21] MEDS ORDERED: Famotidine 20 MG TAB PO SCH (20:45)
[2019-04-21] MEDS ORDERED: diphenhydrAMINE 25 MG CAP PO SCH (20:45)
[2019-04-21] MEDS: Atorvastatin Calcium 40 MG TAB PO SCH (20:59)
[2019-04-21] MEDS ORDERED: Ondansetron PF 4 MG/2 ML Vial IVP PRN (22:24)
[2019-04-21] MEDS ORDERED: Ondansetron ODT 4 MG TAB PO PRN (22:24)
[2019-04-21] MEDS ORDERED: Enoxaparin Sodium 100 MG/ML SYRINGE SC SCH (22:30)
[2019-04-21] MEDS ORDERED: Acetaminophen 325 MG TAB PO PRN (23:03)
[2019-04-21] MEDS: Famotidine 20 MG TAB PO SCH (23:15)
[2019-04-21] MEDS: diphenhydrAMINE 25 MG CAP PO SCH (23:15)
[2019-04-21] MEDS: predniSONE 20 MG TAB PO SCH (23:15)
[2019-04-22 05:28] LABS: #Lymphocytes 0.4 thou/uL (1.20-3.40); #Monocytes 0.2 thou/uL (0.11-0.59); %Basophils 0.2 % (0.0-1.0); %Eosinophils 0.1 % (0.0-10.0); %Lymphocytes 11.6 % (21.0-51.0); %Monocytes 4.8 % (0.0-10.0); %Neutrophils 83.4 % (42.0-75.0); Mean Corpuscular HGB CONC 33.1 g/dL (32.0-36.0); Mean Corpuscular Hemoglobin 30.8 pg (27.0-31.0); Mean Corpuscular Volume 92.9 fL (78.0-98.0); Mean Platelet Volume 7.8 fL (7.4-10.4); Platelet Count 202 thou/uL (130-400); RBC Distribution Width 13.7 % (11.5-14.5); Red Blood Cell (RBC) Count 4.56 mill/uL (4.70-6.10); White Blood Cell (WBC) Count 3.5 thou/uL (4.8-10.8)
[2019-04-22 05:53] LABS: Anion Gap 16 mmol/L (10-20); BUN (Urea Nitrogen) 17 mg/dL (8.4-25.7); Calc. Creatinine Clearance 38 mL/min (70-130); Calcium 9.2 mg/dL (7.8-10.44); Carbon Dioxide 20 mmol/L (23-31); Chloride 105 mmol/L (98-107); Estimated GFR-MDRD 47; Glucose 150 mg/dL (83-110); Magnesium 2.1 mg/dL (1.6-2.6); Potassium 4.4 mmol/L (3.5-5.1); Sodium 137 mmol/L (136-145)
[2019-04-22] MEDS: Aspirin 325 mg Enteric Coated Tablet PO SCH (09:59)
[2019-04-22] MEDS: Carvedilol 6.25 MG TAB PO SCH (09:59)
[2019-04-22] MEDS: Tamsulosin HCl 0.4 MG CAP PO SCH (09:59)
[2019-04-22] MEDS: Lisinopril 2.5 MG TAB PO SCH ×2 (10:02→10:04)
[2019-04-22] MEDS: diphenhydrAMINE 25 MG CAP PO SCH (10:04)
[2019-04-22] MEDS: Famotidine 20 MG TAB PO SCH (10:04)
[2019-04-22] MEDS: predniSONE 20 MG TAB PO SCH (10:04)
--- NOTE | 2019-04-22 13:55 | PDOC.HOSPP ---
- Subjective Encounter Date: 04/22/19 Encounter Time: 07:40 Subjective: Pt seen for followup re: NSTEMI. Says he feels well, no complaints. - Objective Vital Signs & Weight: Vital Signs (12 hours) Temp Pulse Resp BP BP Pulse Ox 04/22/19 12:00 97.6 F 77 18 128/61 95 04/22/19 10:04 106/61 04/22/19 09:59 106/61 04/22/19 08:00 95 04/22/19 07:00 98.6 F 78 18 106/61 95 04/22/19 03:20 98.6 F 84 22 H 98/59 L 88 L 04/22/19 02:08 93 L 04/22/19 02:07 98.9 F 95 24 H 80/48 L 85 L Weight Weight 185 lb 9.6 oz I&O: 04/21/19 04/22/19 04/23/19 06:59 06:59 06:59 Intake Total 120 600 Output Total 1000 150 Balance -880 450 Result Diagrams: 04/22/19 05:14 04/22/19 05:14 Additional Labs: Accuchecks 04/21/19 23:52 POC Glucose 119 H Labs and MARs reviewed by me EKG Reviewed by me: Yes (Tele: NSR) Hospitalist ROS - Review of Systems Respiratory: denies: cough, dry, shortness of breath, hemoptysis, SOB with excertion, pleuritic pain, sputum, wheezing Cardiovascular: denies: chest pain, palpitations, orthopnea, paroxysmal noc. dyspnea, edema, light headedness - Medication Medications: Active Medications Generic Name Dose Route Start Last Admin Trade Name Freq PRN Reason Stop Dose Admin Acetaminophen 650 mg 04/21/19 23:03 04/21/19 23:27 Tylenol PO 650 mg Q4H PRN Administration Fever/Mild Pain Albuterol/Ipratropium 3 ml 04/20/19 17:06 04/20/19 21:39 Duoneb NEB 3 ml Q6H PRN Administration Wheezing Aspirin 325 mg 04/21/19 09:00 04/22/19 09:59 Ecotrin PO 325 mg DAILY JUICE Administration Atorvastatin Calcium 40 mg 04/20/19 21:00 04/21/19 20:59 Lipitor PO 40 mg HS JUICE Administration Carvedilol 6.25 mg 04/22/19 09:00 04/22/19 09:59 Coreg PO 6.25 mg DAILY JUICE Administration Lisinopril 2.5 mg 04/21/19 09:00 04/22/19 10:04 Zestril PO Not Given DAILY JUICE Ondansetron HCl 4 mg 04/21/19 22:24 04/21/19 22:41 Zofran IVP 4 mg Q6H PRN Administration Nausea/Vomiting Tamsulosin HCl 0.4 mg 04/21/19 09:00 04/22/19 09:59 Flomax PO 0.4 mg DAILY JUICE Administration - Exam General Appearance: NAD, awake alert Eye: PERRL, anicteric sclera ENT: moist mucosa Neck: supple, symmetric Heart: RRR, no rubs Respiratory: CTAB, no rales Gastrointestinal: soft, non-tender, normal bowel sounds Musculoskeletal: normal strength Psychiatric: normal affect, normal behavior Hosp A/P (1) NSTEMI (non-ST elevated myocardial infarction) Code(s): I21.4 - NON-ST ELEVATION (NSTEMI) MYOCARDIAL INFARCTION Status: Acute (2) BPH (benign prostatic hyperplasia) Code(s): N40.0 - BENIGN PROSTATIC HYPERPLASIA WITHOUT LOWER URINRY TRACT SYMP Status: Chronic (3) Chronic diastolic congestive heart failure, NYHA class 2 Code(s): I50.32 - CHRONIC DIASTOLIC (CONGESTIVE) HEART FAILURE Status: Chronic (4) COPD (chronic obstructive pulmonary disease) Status: Chronic (5) Hyperlipidemia Code(s): E78.5 - HYPERLIPIDEMIA, UNSPECIFIED Status: Chronic (6) Hypertension Code(s): I10 - ESSENTIAL (PRIMARY) HYPERTENSION Status: Chronic - Plan continue aspirin and therapeutic Lovenox. appreciate cardiology input. BPH stable, continue tamsulosin. COPD stable. BP controlled.
--- NOTE | 2019-04-22 18:35 | PRG ---
DATE OF SERVICE: 04/22/2019 SUBJECTIVE: Mr. Nguyen is doing okay now. Last night after receiving Benadryl and prednisone, he had abdominal pain, nausea, and dry heaving and later had confusion and disorientation. He is feeling okay today. No further chest pain. OBJECTIVE: VITAL SIGNS: Blood pressure 119/59 and pulse 64 and regular. EYES: Sclerae are nonicteric. MOUTH: Mucous membranes moist. LUNGS: Clear. CARDIAC: Normal S1. Normal S2. ABDOMEN: Soft and nontender. EXTREMITIES: Warm and dry. No clubbing, cyanosis, or edema. ASSESSMENT: 1. Status post non-ST elevation myocardial infarction. 2. Iodine allergy. 3. Adverse reaction to combination of prednisone and Benadryl. 4. Renal insufficiency. Creatinine has gone from 1.26 to 1.68. PLAN: 1. Do basic metabolic profile tomorrow. 2. Try again with premedication, we will use intravenous steroids instead of oral. We will not give Benadryl. Tentatively planned catheterization if the patient is stable. Job ID: [id number]
[2019-04-22] MEDS ORDERED: Bacteriostatic Water 30 ML VIAL FS PRN (19:35)
[2019-04-22] MEDS: Enoxaparin Sodium 60 MG/0.6 ML SYRINGE SC SCH (21:17)
[2019-04-22] MEDS: Atorvastatin Calcium 40 MG TAB PO SCH (21:17)
[2019-04-23 04:59] LABS: Anion Gap 12 mmol/L (10-20); BUN (Urea Nitrogen) 20 mg/dL (8.4-25.7); Calc. Creatinine Clearance 46 mL/min (70-130); Carbon Dioxide 25 mmol/L (23-31); Chloride 103 mmol/L (98-107); Estimated GFR-MDRD 59; Glucose 104 mg/dL (83-110); Potassium 4.1 mmol/L (3.5-5.1); Sodium 136 mmol/L (136-145)
[2019-04-23] MEDS: Enoxaparin Sodium 60 MG/0.6 ML SYRINGE SC SCH ×2 (10:11→22:00)
[2019-04-23] MEDS: Lisinopril 2.5 MG TAB PO SCH (10:11)
[2019-04-23] MEDS: Aspirin 325 mg Enteric Coated Tablet PO SCH (10:12)
[2019-04-23] MEDS: Tamsulosin HCl 0.4 MG CAP PO SCH (10:12)
[2019-04-23] MEDS: Carvedilol 6.25 MG TAB PO SCH (10:12)
[2019-04-23] MEDS ORDERED: Communication Order-Pharmacy FS SCH (13:30)
--- NOTE | 2019-04-23 13:51 | PRG ---
DATE OF SERVICE: 04/23/2019 SUBJECTIVE: Mr. Nguyen is doing fine. No complaints. OBJECTIVE: VITAL SIGNS: Blood pressure 144/66, pulse is 74 and regular. LUNGS: Clear. CARDIAC: Normal S1, normal S2. ABDOMEN: Soft, nontender. ASSESSMENT: 1. Previous bypass surgery. 2. Status post [id number] myocardial infarction. 3. Iodine allergy. 4. Renal insufficiency, improved. Creatinine has gone from 1.68 to 1.39. PLAN: Proceed to cardiac catheterization tomorrow. The patient understands risk of stroke, heart attack, iodine allergy, loss of blood supply to leg or kidney, stent thrombosis, stent restenosis, and wishes to proceed. Dr. Leblanc will proceed with this procedure in the morning. Job ID: [id number]
[2019-04-23] MEDS ORDERED: Famotidine 20 MG TAB PO SCH ×2 (16:00→22:00)
[2019-04-23] MEDS: methylPREDNISolone Sod Succ 40 MG VIAL IVP SCH ×2 (16:07→22:04)
--- NOTE | 2019-04-23 17:51 | PDOC.HOSPP ---
- Subjective Encounter Date: 04/23/19 Encounter Time: 07:40 Subjective: Pt seen for followup re:NSTEMI. No complaints today. - Objective Vital Signs & Weight: Vital Signs (12 hours) Temp Pulse Resp BP BP BP Pulse Ox 04/23/19 16:21 97.8 F 75 18 109/64 90 L 04/23/19 11:38 97.7 F 74 18 144/66 H 93 L 04/23/19 10:12 111/63 04/23/19 10:11 76 111/63 04/23/19 08:00 94 L 04/23/19 07:46 97.7 F 76 18 111/63 85 L Weight Weight 184 lb 6.4 oz I&O: 04/22/19 04/23/19 04/24/19 06:59 06:59 06:59 Intake Total 600 240 Output Total 150 625 Balance 450 -385 Result Diagrams: 04/22/19 05:14 04/23/19 04:24 Additional Labs: Labs and MARs reviewed by me EKG Reviewed by me: Yes (Tele: NSR) Hospitalist ROS - Review of Systems Cardiovascular: denies: chest pain, palpitations, orthopnea, paroxysmal noc. dyspnea, edema, light headedness Genitourinary: denies: dysuria, frequency, incontinence, hematuria, retention - Medication Medications: Active Medications Generic Name Dose Route Start Last Admin Trade Name Freq PRN Reason Stop Dose Admin Acetaminophen 650 mg 04/21/19 23:03 04/21/19 23:27 Tylenol PO 650 mg Q4H PRN Administration Fever/Mild Pain Albuterol/Ipratropium 3 ml 04/20/19 17:06 04/20/19 21:39 Duoneb NEB 3 ml Q6H PRN Administration Wheezing Aspirin 325 mg 04/21/19 09:00 04/23/19 10:12 Ecotrin PO 325 mg DAILY JUICE Administration Atorvastatin Calcium 40 mg 04/20/19 21:00 04/22/19 21:17 Lipitor PO 40 mg HS JUICE Administration Carvedilol 6.25 mg 04/22/19 09:00 04/23/19 10:12 Coreg PO 6.25 mg DAILY JUICE Administration Enoxaparin Sodium 60 mg 04/22/19 21:00 04/23/19 10:11 Lovenox SC 04/23/19 23:59 60 mg 0900,2100 JUICE Administration Famotidine 20 mg 04/23/19 16:00 04/23/19 16:08 Pepcid PO 04/23/19 18:00 20 mg NOW JUICE Administration Lisinopril 2.5 mg 04/21/19 09:00 04/23/19 10:11 Zestril PO 2.5 mg DAILY JUICE Administration Methylprednisolone Sodium Succinate 40 mg 04/23/19 16:00 04/23/19 16:07 Solu-Medrol IVP 04/24/19 08:00 40 mg Q6H JUICE Administration Ondansetron HCl 4 mg 04/21/19 22:24 04/21/19 22:41 Zofran IVP 4 mg Q6H PRN Administration Nausea/Vomiting Tamsulosin HCl 0.4 mg 04/21/19 09:00 04/23/19 10:12 Flomax PO 0.4 mg DAILY JUICE Administration - Exam General Appearance: NAD, awake alert Eye: anicteric sclera ENT: moist mucosa Neck: supple, no JVD Heart: RRR Respiratory: CTAB Gastrointestinal: soft, non-tender Skin: no lesions Neurological: no weakness Psychiatric: normal affect, normal behavior Hosp A/P (1) NSTEMI (non-ST elevated myocardial infarction) Code(s): I21.4 - NON-ST ELEVATION (NSTEMI) MYOCARDIAL INFARCTION Status: Acute (2) BPH (benign prostatic hyperplasia) Code(s): N40.0 - BENIGN PROSTATIC HYPERPLASIA WITHOUT LOWER URINRY TRACT SYMP Status: Chronic (3) Chronic diastolic congestive heart failure, NYHA class 2 Code(s): I50.32 - CHRONIC DIASTOLIC (CONGESTIVE) HEART FAILURE Status: Chronic (4) COPD (chronic obstructive pulmonary disease) Status: Chronic (5) Hyperlipidemia Code(s): E78.5 - HYPERLIPIDEMIA, UNSPECIFIED Status: Chronic (6) Hypertension Code(s): I10 - ESSENTIAL (PRIMARY) HYPERTENSION Status: Chronic - Plan plan discussed w/ family, PT/OT, out of bed/ambulate Plan for cath tomorrow. On aspirin and therapeutic Lovenox. BPH stable COPD stable. HTN controlled.
[2019-04-23] MEDS: Atorvastatin Calcium 40 MG TAB PO SCH (22:00)
[2019-04-24] MEDS ORDERED: Famotidine 20 MG TAB PO SCH (04:00)
[2019-04-24] MEDS: methylPREDNISolone Sod Succ 40 MG VIAL IVP SCH (04:41)
[2019-04-24] MEDS ORDERED: Sodium Chloride 0.9% 1,000 ML IV SCH ×2 (06:00→08:17)
[2019-04-24 06:28] LABS: Anion Gap 14 mmol/L (10-20); BUN (Urea Nitrogen) 11 mg/dL (8.4-25.7); Calc. Creatinine Clearance 72 mL/min (70-130); Calcium 9.2 mg/dL (7.8-10.44); Carbon Dioxide 23 mmol/L (23-31); Chloride 103 mmol/L (98-107); Estimated GFR-MDRD Greater than 90; Glucose 168 mg/dL (83-110); Potassium 4.6 mmol/L (3.5-5.1); Sodium 135 mmol/L (136-145)
[2019-04-24] MEDS ORDERED: Lidocaine 1% (PF) 30 ML VIAL ONE (06:36)
[2019-04-24] MEDS: Aspirin 325 mg Enteric Coated Tablet PO SCH (06:37)
[2019-04-24] MEDS: Tamsulosin HCl 0.4 MG CAP PO SCH (06:37)
[2019-04-24] MEDS: Carvedilol 6.25 MG TAB PO SCH (06:37)
[2019-04-24] MEDS: Lisinopril 2.5 MG TAB PO SCH (06:37)
[2019-04-24] MEDS ORDERED: Heparin 10,000 UNITS/1 ML VIAL ONE (06:38)
[2019-04-24] MEDS ORDERED: Fentanyl 100 MCG/2 ML VIAL ONE (07:17)
[2019-04-24] MEDS ORDERED: Midazolam HCl 2 mg/2 ml Vial ONE (07:17)
[2019-04-24] MEDS ORDERED: Protamine Sulfate 50 MG/5 ML VIAL ONE (07:51)
[2019-04-24] MEDS ORDERED: Nitroglycerin 0.4 MG TAB (25 Tab Bottle) SL PRN (08:16)
[2019-04-24] MEDS ORDERED: Sodium Chloride 0.9% 200 ML IV PRN (08:16)
[2019-04-24] MEDS ORDERED: Acetaminophen/Codeine 30-300mg Tablet PO PRN ×2 (08:16)
[2019-04-24] MEDS ORDERED: Clopidogrel Bisulfate 75 MG TAB PO SCH (09:00)
--- NOTE | 2019-04-24 11:22 | PQF ---
JOSE DE JESUS СЕРГЕЙ ORELLANA [id number] [facility] [id number] CLINICAL DOCUMENTATION IMPROVEMENT CLARIFICATION FORM: ICD-10 Updated PLEASE DO AN ADDENDUM TO THE PROGRESS NOTE WITH ANY DOCUMENTATION UPDATES OR ADDITIONS AND CARRY THROUGH TO DC SUMMARY. THANK YOU. DATE: 04/24/2019 ATTN:DR. Luciana ORELLANA Please exercise your independent, professional judgment in responding to the clarification form. Clinical indicators are provided on the bottom of this form for your review. Please check appropriate box(s): Conflicting documentation was noted in the Medical Record, please clarify if patient is being treated/monitored for: [ ] ACUTE ON CHRONIC DIASTOLIC CONGESTIVE HEART FAILURE [ ] CHRONIC DIASTOLIC CONGESTIVE HEART FAILURE [ ] Other diagnosis [ ] Unable to determine In addition, please specify: Present on Admission (POA): [ ] Yes [ ] No [ ] Unable to determine For continuity of documentation, please document condition throughout progress notes and discharge summary. Thank You. CLINICAL INDICATORS - SIGNS / SYMPTOMS/ LABS / RESULTS AND LOCATION IN EMR Insert documentation from providers that state diagnosis 04/20 ED REPORT: PATIENT PRESENTS WITH C/O SOB AND NON PRODUCTIVE COUGH,WITH DYSPNEA ON EXERTION; ED PHYSICIAN DX: NSTEMI, CHF 04/20 H&P (MIK) A/P: 2) CONGESTIVE HEART FAILURE EXACERBATION. HE WILL BE TREATED SYMPTOMATICALLY WITH IV FUROSEMIDE 20MG b.i.d.; PORTABLE CXR SHOWED SIGNS OF CONGESTIVE HEART FAILURE 04/21-04/23 PN (REYNA) A/P : 3) CHRONIC DIASTOLIC CONGESTIVE HEART FAILURE RISK: HX OF CHF, CAD (H&P/MIK) 04/20 TREATMENTS: SUPPLEMENTAL OXYGEN (04/20, 04/22) ECHO 04/21 THANK YOU! KYREE (This form is maintained as a part of the permanent medical record) 2014 [employer] All Rights Reserved [email or web address] [phone] MTDD
--- NOTE | 2019-04-24 13:41 | PRG ---
DATE OF SERVICE: Mr. Nguyen underwent cardiac catheterization today revealed that he has three vessel disease. He has patent graft to the left side as outlined by Dr. Lelbanc with an occluded right coronary graft to the right, fills via collaterals. The patient should be treated medically. He will be on aspirin and Plavix and all the other medicines the same as prior to admission. The catheterization showed HANCOCK to the LAD patent, diagonal graft patent, radial piggybacked onto the diagonal graft. Right coronary occluded, but fills via collaterals from the left. Ejection fraction 55% to 60%. Inferior basilar akinesis. Job ID: [id number]
[2019-04-24 16:30] VITALS: BP 130/65; TEMP 98.5
[2019-04-24] MEDS ORDERED: Carvedilol 6.25 MG TAB PO SCH (17:00)
--- NOTE | 2019-04-25 02:44 | DIS ---
DATE OF ADMISSION: 04/20/2019 DATE OF DISCHARGE: 04/24/2019 PRIMARY CARE PROVIDER: Dr. Erik Mejia. DISCHARGE DIAGNOSES: 1. Non-ST elevation myocardial infarction. 2. Chronic diastolic congestive heart failure. 3. Hyponatremia. 4. Acute kidney injury. CONDITION OF PATIENT ON THE DAY OF DISCHARGE: Stable. I assessed Mr. Nguyen on the day of discharge. He denies any chest pain or shortness of breath. Vital signs are stable. S1 and S2 are heard, regular. Lungs are clear to auscultation bilaterally. CONSULTATION DURING THIS HOSPITALIZATION: Cardiology, Dr. Valdez. POST-DISCHARGE FOLLOWUP: With Dr. Mejia on 04/29/2019 at 10:40 am, with Dr. Huffman in 2 to 3 weeks. DISCHARGE MEDICATIONS: 1. Nitroglycerin p.r.n. 2. Albuterol p.r.n. 3. Plavix 75 mg daily. 4. Lasix 20 mg daily. 5. Crestor 20 mg at bedtime. 6. Flomax 0.4 mg daily. 7. Tizanidine 2 mg 3 times a day. 8. Aspirin 81 mg daily. 9. Coreg 6.25 mg 2 times a day. 10. DuoNeb p.r.n. 11. Lisinopril 2.5 mg daily. HOSPITAL COURSE: Mr. Nguyen is a pleasant 84-year-old gentleman who was admitted to [facility] on 04/20/2019, for chest pain and shortness of breath. Please refer to Mr. Escoto's history and physical note dated 04/20/2019, for further details. He was monitored on telemetry. He was found to have [id number] myocardial infarction. 2D echocardiogram showed left ventricular ejection fraction of 45% to 50%, normal-sized left atrium, normal left ventricular size, somewhat thickened aortic valve leaflets, [id number] mitral regurgitation. He was asymptomatic following admission. He underwent cardiac catheterization on 04/24/2019. He had 3-vessel disease, patent graft to the left side and occluded coronary graft to the right, fills via collaterals. Medical management was recommended. The patient is being discharged home with home health for nursing and physical therapy. On the day of discharge, he has sodium 135, potassium 4.6, creatinine 0.89, blood urea nitrogen 11. Calcium is 9.2. During this hospitalization, he had triglyceride 68, cholesterol 126, LDL cholesterol 78, and HDL cholesterol 34. DISCHARGE DESTINATION: Home. TIME SPENT: Total amount of time spent coordinating this discharge: 32 minutes. Job ID: [id number]
[2019-04-25] MEDS ORDERED: Aspirin 81 mg Enteric Coated Tablet PO SCH (09:00)
--- NOTE | 2019-04-25 09:53 | EKG ---
Test Reason : Blood Pressure : / mmHG Vent. Rate : 078 BPM Atrial Rate : 078 BPM P-R Int : 182 ms QRS Dur : 102 ms QT Int : 420 ms P-R-T Axes : 051 011 119 degrees QTc Int : 478 ms Normal sinus rhythm Prolonged QT Abnormal ECG Confirmed by NAM MIRELES MD ([id number]) on 04/25/2019 9:52:40 AM Referred By: MIK Confirmed By:NAM MIRELES MD
== END 2019-04-24 16:47 | disposition home health service (06) | DRG 281 ==
LOC: ERS 11:18 → ERHOLD 12:48 → 2SE 16:07
PROVIDERS: ADMIT Internal Medicine; ATTEND Internal Medicine
PROC: 4A023N7 Measurement of Cardiac Sampling and Pressure, Left Heart, Percutaneous Approach (ICD-10-PCS; principal; 2019-04-20)
PROC: B2111ZZ Fluoroscopy of Multiple Coronary Arteries using Low Osmolar Contrast (ICD-10-PCS; 2019-04-20)
PROC: B2151ZZ Fluoroscopy of Left Heart using Low Osmolar Contrast (ICD-10-PCS; 2019-04-20)
PROC: B2181ZZ Fluoroscopy of Left Internal Mammary Bypass Graft using Low Osmolar Contrast (ICD-10-PCS; 2019-04-20)
DX: I21.4 Non-ST elevation (NSTEMI) myocardial infarction (principal); I50.32 Chronic diastolic (congestive) heart failure; E87.1 Hypo-osmolality and hyponatremia; N17.9 Acute kidney failure, unspecified; N40.0 Benign prostatic hyperplasia without lower urinary tract symptoms; E78.5 Hyperlipidemia, unspecified; I11.0 Hypertensive heart disease with heart failure; J44.9 Chronic obstructive pulmonary disease, unspecified; I25.10 Atherosclerotic heart disease of native coronary artery without angina pectoris; E66.9 Obesity, unspecified; Z95.810 Presence of automatic (implantable) cardiac defibrillator; Z91.041 Radiographic dye allergy status; Z68.27 Body mass index [BMI] 27.0-27.9, adult
CPT/HCPCS: 36415; 36416; 80048; 80061; 82553; 83735; 85025; 85347; 90471; 90662; 90670; 93005; 93010; 93306; 93459; 93798; 94640; 99152; C1769; G0008; G0009; J1644; J1650; J1940; J2001; J2250; J2405; J2720; J2920; J3010; J7512; J7620; Q0163

== ENCOUNTER 2019-05-01 19:05 | Observation (INO) | payer MEDICARE ==
[2019-05-01] MEDS ORDERED: Nitroglycerin 0.4 MG TAB (25 Tab Bottle) PO PRN (20:09)
--- NOTE | 2019-05-01 20:40 | HP ---
PRIMARY CARE PROVIDER: Dr. Erik Mejia. CHIEF COMPLAINT: Chest pain. HISTORY OF PRESENT ILLNESS: Mr. Nguyen is a pleasant 84-year-old gentleman, who was seen at [facility] on 05/01/2019, following transfer from [facility]. He was hospitalized at this facility from 04/20 to of this year for non ST-elevation myocardial infarction, acute kidney injury, hyponatremia, and chronic diastolic congestive heart failure. During that hospitalization, he underwent cardiac catheterization. He was recommended medical management. He reports that he was doing well until 2 days ago. At that time, he started having chest pain. He describes it as aching, 5/10, across the left side of his chest and radiating up the left side of his neck and down the left arm, constant, not accompanied by shortness of breath, not accompanied by dizziness, not accompanied by nausea or vomiting. He cannot recall any aggravating factors, but it was relieved when he received medications in the emergency room. REVIEW OF SYSTEMS: All systems were reviewed and found to be negative except for the pertinent positives mentioned above. PAST MEDICAL HISTORY: Hypertension, dyslipidemia, coronary artery disease, gastroesophageal reflux disease, benign prostate hypertrophy, congestive heart failure. PAST SURGICAL HISTORY: Appendectomy, AICD placement, cholecystectomy, left foot surgery, back surgery, coronary artery bypass graft surgery x4 vessels. SOCIAL HISTORY: The patient denies tobacco use, alcohol use, or recreational drug use. FAMILY HISTORY: The patient denies family history of premature coronary artery disease. ALLERGIES: Iodine. HOME MEDICATIONS: As dictated on my discharge summary dated 04/24/2019. CODE STATUS: I discussed his code status. He is full code. PHYSICAL EXAMINATION: GENERAL: On examination, Mr. Nguyen is awake and alert, not in acute distress. VITAL SIGNS: Blood pressure is 153/91, pulse 85, respiratory rate 18, and oxygen saturation 100% on room air. He is afebrile. EYES: No scleral icterus, no conjunctival pallor. ENT: Moist mucosal membranes. No oropharyngeal erythema or exudates. NECK: Supple, nontender, trachea is midline. RESPIRATORY: Accessory muscles of breathing are not active. Chest wall movements are symmetric bilaterally. Lungs are clear to auscultation without wheeze, rhonchi, or crepitations. CARDIOVASCULAR: S1 and S2 are heard, regular. Peripheral pulses palpable. No carotid bruit. No pericardial rub. ABDOMEN: Soft, nontender, bowel sounds are heard, no hepatomegaly, no splenomegaly. NEUROLOGIC: The patient is hard of hearing. Otherwise, cranial nerves 2 through 12 are intact. MUSCULOSKELETAL: Power is 5/5 in all 4 extremities. SKIN: No rashes or subcutaneous nodules. LYMPHATIC: No cervical lymphadenopathy. PSYCHIATRIC: Normal mood, normal affect. The patient is oriented to person, place, and time. LABORATORY DATA: Mr. Nguyen' labs and investigations were reviewed. I reviewed his electrocardiogram, which shows normal sinus rhythm, no ST changes to suggest an acute coronary syndrome. I also reviewed his chest x-ray, which does not show any pulmonary infiltrates. He has an unremarkable CBC, normal sodium, normal potassium, elevated creatinine of 1.35, last known creatinine 0.89 on 04/24/2019, unremarkable LFTs. Troponin-I is elevated in the indeterminate range at 0.084, trending up from 0.057 earlier today. ASSESSMENT AND PLAN: Mr. Nguyen is a pleasant 84-year-old gentleman who was seen at [facility] on 05/01/2019. His problem list includes: 1. Chest pain: Mr. Nguyen is presenting with chest pain. He recently had coronary angiography and was recommended medical therapy. We will admit the patient to quality assurance monitor final and recheck troponin. Cardiology Service consult will be placed for optimization of his anginal medications. 2. Acute kidney injury: Mr. Nguyen is presenting with acute kidney injury. We will provide gentle hydration and recheck creatinine level. 3. Hypertension: Resume home medications, monitor vital signs and titrate antihypertensives as needed. 4. Dyslipidemia: Continue statin. 5. Benign prostatic hypertrophy: Stable. Many thanks for allowing me to participate in your patient's care. Please feel free to contact me with any questions or concerns. LEVEL OF RISK: High. LEVEL OF COMPLEXITY: High. Job ID: [id number] [facility]
[2019-05-01 21:17] VITALS: BMI 27.3
[2019-05-01] MEDS: Sodium Chloride 0.9% 1,000 ML IV SCH (21:55)
[2019-05-02 00:27] LABS: Troponin I 0.046 ng/mL (< 0.028)
[2019-05-02 05:31] LABS: Eosinophils 7 % (0-10); Hemoglobin 13.3 g/dL (14.0-18.0); Lymphocytes 31 % (21-51); MDiff Complete? YES; Mean Corpuscular HGB CONC 32.3 g/dL (32.0-36.0); Mean Corpuscular Hemoglobin 30.2 pg (27.0-31.0); Mean Corpuscular Volume 93.6 fL (78.0-98.0); Mean Platelet Volume 7.4 fL (7.4-10.4); Monocytes 10 % (0-10); Neutrophil 52 % (42-75); Platelet Count 211 thou/uL (130-400); Platelet Morphology Comment Appears Adequate; RBC Distribution Width 13.7 % (11.5-14.5); RBC Morphology Normal; Red Blood Cell (RBC) Count 4.42 mill/uL (4.70-6.10); White Blood Cell (WBC) Count 4.9 thou/uL (4.8-10.8)
[2019-05-02 05:34] LABS: Anion Gap 11 mmol/L (10-20); BUN (Urea Nitrogen) 12 mg/dL (8.4-25.7); Calc. Creatinine Clearance 56 mL/min (70-130); Calcium 8.6 mg/dL (7.8-10.44); Carbon Dioxide 24 mmol/L (23-31); Chloride 107 mmol/L (98-107); Estimated GFR-MDRD 73; Glucose 96 mg/dL (83-110); Potassium 4.2 mmol/L (3.5-5.1); Sodium 138 mmol/L (136-145)
[2019-05-02] MEDS: Sodium Chloride 0.9% 1,000 ML IV SCH (12:48)
--- NOTE | 2019-05-02 15:21 | PDOC.HOSPP ---
- Subjective Encounter Date: 05/02/19 Encounter Time: 15:00 Subjective: +Chest painn, related to motions.. - Objective Vital Signs & Weight: Vital Signs (12 hours) Temp Pulse Resp BP BP Pulse Ox 05/02/19 11:45 98.3 F 79 20 125/76 95 05/02/19 07:30 98.2 F 72 16 131/59 L 95 05/02/19 04:48 98.1 F 61 19 109/61 95 Weight Weight 186 lb 1.122 oz I&O: 05/01/19 05/02/19 05/03/19 06:59 06:59 06:59 Intake Total 1058 Output Total 150 Balance 908 Result Diagrams: 05/02/19 05:00 05/02/19 05:00 Hospitalist ROS - Medication Medications: Active Medications Generic Name Dose Route Start Last Admin Trade Name Freq PRN Reason Stop Dose Admin Sodium Chloride 1,000 mls @ 70 mls/hr 05/01/19 20:30 05/02/19 12:48 Normal Saline 0.9% IV 1,000 mls .[id number] JUICE Administration - Exam General Appearance: NAD Neck: supple Heart: RRR Respiratory: CTAB Gastrointestinal: soft Extremities: no edema Neurological: no weakness Hosp A/P (1) Chest pain Code(s): R07.9 - CHEST PAIN, UNSPECIFIED Status: Acute Plan: s/p cardiac cath, recent. Troponin is elevated.. Cardiology to see. (2) HTN (hypertension) Code(s): I10 - ESSENTIAL (PRIMARY) HYPERTENSION Status: Acute Plan: controlled.. (3) BIA (acute kidney injury) Code(s): N17.9 - ACUTE KIDNEY FAILURE, UNSPECIFIED Status: Acute Plan: f/u chemistry.. (4) Dyslipidemia Code(s): E78.5 - HYPERLIPIDEMIA, UNSPECIFIED Status: Acute Plan: on Statin.. (5) BPH (benign prostatic hyperplasia) Code(s): N40.0 - BENIGN PROSTATIC HYPERPLASIA WITHOUT LOWER URINRY TRACT SYMP Status: Chronic
[2019-05-02] MEDS ORDERED: Albuterol Sulfate 2.5 mg/3 ml Neb NEB PRN (17:53)
--- NOTE | 2019-05-02 18:25 | PRG ---
DATE OF SERVICE: 05/02/2019 SUBJECTIVE: Mr. Nguyen was brought back to the hospital for observation for chest pain and left arm pain. Recent catheterization showed he is adequately vascularized to the large areas of his heart. There is a which does not have a graft that area looks like it is not feasible to treat percutaneously . Medical therapy most appropriate. On this occasion, he had some chest pain but also left arm pain going down into his hand. OBJECTIVE: VITAL SIGNS: Blood pressure is 125/76, pulse 80 and regular. LUNGS: Clear, except some wheezing. CARDIAC: Normal S1, normal S2. ABDOMEN: Soft and nontender. EXTREMITIES: No edema. ASSESSMENT: Chest pain. Some of it may be angina, but he may also have cervical spine related pain. PLAN: 1. Give a dose of intravenous steroids tonight, tomorrow morning. 2. MRI of the spine. 3. Add Johna. Job ID: [id number]
[2019-05-02] MEDS: Atorvastatin Calcium 40 MG TAB PO SCH (20:30)
[2019-05-02] MEDS: Famotidine 20 MG TAB PO SCH (20:30)
[2019-05-02] MEDS ORDERED: Metoprolol Tartrate 25 MG TAB PO SCH (21:00)
[2019-05-02] MEDS: methylPREDNISolone Sod Succ 40 MG VIAL IVP SCH (21:50)
[2019-05-03] MEDS: Sodium Chloride 0.9% 1,000 ML IV SCH (03:34)
[2019-05-03] MEDS: methylPREDNISolone Sod Succ 40 MG VIAL IVP SCH (05:03)
[2019-05-03] MEDS: Lisinopril 2.5 MG TAB PO SCH (08:59)
[2019-05-03] MEDS: Furosemide 20 MG TAB PO SCH (09:00)
[2019-05-03] MEDS: Famotidine 20 MG TAB PO SCH ×2 (09:00→20:27)
[2019-05-03] MEDS: Aspirin 81 mg Enteric Coated Tablet PO SCH (09:00)
[2019-05-03] MEDS: Carvedilol 6.25 MG TAB PO SCH ×2 (09:00→16:56)
[2019-05-03] MEDS: Clopidogrel Bisulfate 75 MG TAB PO SCH (09:01)
--- NOTE | 2019-05-03 12:43 | PDOC.HOSPP ---
- Subjective Encounter Date: 05/03/19 Encounter Time: 10:50 Subjective: Feels better. - Objective Vital Signs & Weight: Vital Signs (12 hours) Temp Pulse Resp BP BP BP Pulse Ox 05/03/19 11:14 97.5 F L 72 20 120/62 95 05/03/19 09:00 140/77 05/03/19 08:59 82 140/77 05/03/19 07:06 97.5 F L 82 20 140/77 94 L 05/03/19 05:05 98.0 F 87 15 139/74 94 L Weight Weight 187 lb I&O: 05/02/19 05/03/19 05/04/19 06:59 06:59 05:59 Intake Total 1058 2904 480 Output Total 150 1300 350 Balance 908 1604 130 Result Diagrams: 05/02/19 05:00 05/02/19 05:00 Hospitalist ROS - Medication Medications: Active Medications Generic Name Dose Route Start Last Admin Trade Name Freq PRN Reason Stop Dose Admin Aspirin 81 mg 05/03/19 09:00 05/03/19 09:00 Ecotrin PO 81 mg DAILY JUICE Administration Atorvastatin Calcium 40 mg 05/02/19 21:00 05/02/19 20:30 Lipitor PO 40 mg HS JUICE Administration Carvedilol 6.25 mg 05/03/19 08:00 05/03/19 09:00 Coreg PO 6.25 mg BID-WM JUICE Administration Clopidogrel Bisulfate 75 mg 05/03/19 09:00 05/03/19 09:01 Plavix PO 75 mg DAILY JUICE Administration Famotidine 20 mg 05/02/19 21:00 05/03/19 09:00 Pepcid PO 20 mg BID JUICE Administration Furosemide 20 mg 05/03/19 09:00 05/03/19 09:00 Lasix PO 20 mg DAILY JUICE Administration Sodium Chloride 1,000 mls @ 70 mls/hr 05/01/19 20:30 05/03/19 03:34 Normal Saline 0.9% IV 1,000 mls .[id number] JUICE Administration Lisinopril 2.5 mg 05/03/19 09:00 05/03/19 08:59 Zestril PO 2.5 mg DAILY JUICE Administration Ranolazine 500 mg 05/02/19 21:00 05/03/19 09:00 Ranexa PO 500 mg BID JUICE Administration - Exam Neck: no JVD Heart: RRR Respiratory: CTAB Gastrointestinal: soft Extremities: no edema Neurological: no focal deficits Hosp A/P (1) Chest pain Code(s): R07.9 - CHEST PAIN, UNSPECIFIED Status: Acute Plan: As per cardiology.. (2) HTN (hypertension) Code(s): I10 - ESSENTIAL (PRIMARY) HYPERTENSION Status: Acute Plan: Controlled. (3) BIA (acute kidney injury) Code(s): N17.9 - ACUTE KIDNEY FAILURE, UNSPECIFIED Status: Acute Plan: Check BMP in am. (4) Dyslipidemia Code(s): E78.5 - HYPERLIPIDEMIA, UNSPECIFIED Status: Acute Plan: On Statin. (5) BPH (benign prostatic hyperplasia) Code(s): N40.0 - BENIGN PROSTATIC HYPERPLASIA WITHOUT LOWER URINRY TRACT SYMP Status: Chronic - Plan As per cardiology. f/u spine MRI..
[2019-05-03] MEDS: Atorvastatin Calcium 40 MG TAB PO SCH (20:27)
[2019-05-04 06:10] LABS: Anion Gap 12 mmol/L (10-20); BUN (Urea Nitrogen) 15 mg/dL (8.4-25.7); Calc. Creatinine Clearance 55 mL/min (70-130); Calcium 8.5 mg/dL (7.8-10.44); Carbon Dioxide 20 mmol/L (23-31); Chloride 107 mmol/L (98-107); Estimated GFR-MDRD 70; Glucose 204 mg/dL (83-110); Potassium 4.6 mmol/L (3.5-5.1); Sodium 134 mmol/L (136-145)
[2019-05-04] MEDS ORDERED: Acetaminophen 500 MG TAB PO PRN (06:57)
[2019-05-04 07:33] VITALS: TEMP 97.5
[2019-05-04] MEDS: Aspirin 81 mg Enteric Coated Tablet PO SCH (08:04)
[2019-05-04] MEDS: Clopidogrel Bisulfate 75 MG TAB PO SCH (08:04)
[2019-05-04] MEDS: Carvedilol 6.25 MG TAB PO SCH (08:04)
[2019-05-04] MEDS: Famotidine 20 MG TAB PO SCH (08:05)
[2019-05-04] MEDS: Lisinopril 2.5 MG TAB PO SCH (08:05)
[2019-05-04] MEDS: Furosemide 20 MG TAB PO SCH (08:05)
[2019-05-04] MEDS ORDERED: Ibuprofen 200 MG TAB PO SCH (08:45)
[2019-05-04 11:40] VITALS: BP 141/67
--- NOTE | 2019-05-05 07:10 | DIS ---
DATE OF ADMISSION: 05/01/2019 DATE OF DISCHARGE: 05/04/2019 ADMITTING DIAGNOSIS: Chest pain. Secondary diagnoses: Acute kidney injury, hypertension, dyslipidemia, and benign prostatic hypertrophy. DISCHARGE DIAGNOSES: Chest pain. Secondary diagnoses: Acute kidney injury, hypertension, dyslipidemia, and benign prostatic hypertrophy. Chest pain, most likely of musculoskeletal origin. According to fisheries inspector, advisor consultant Dr. Huffman. PROCEDURE PERFORMED: EKG. COURSE OF HOSPITALIZATION: Uncomplicated, responded well to management. The patient does not have any chest pain today. He was complaining of some pain in his feet and he was given nonsteroidal. He is clinically stable at this time. He is being discharged home. He is to follow up with his fisheries inspector and also with his primary care physician. DISCHARGE MEDICATIONS: Please see discharge medication reconciliation sheet. PHYSICAL EXAMINATION: GENERAL: Today, he is alert and oriented, in no acute distress. LATEST VITAL SIGNS: Shows a temperature of 97.5, pulse rate of 62, respiratory rate of 16, blood pressure 150/69. HEAD AND NECK: Normal. HEART: He has regular S1 and S2. LUNGS: Clear. ABDOMEN: Benign. Job ID: [id number]
== END 2019-05-04 12:37 | disposition home or self-care (01) ==
LOC: ERS 19:05 → 2SW 19:26
PROVIDERS: ADMIT Internal Medicine; ATTEND Internal Medicine
DX: R07.9 Chest pain, unspecified (principal); N17.9 Acute kidney failure, unspecified; I11.0 Hypertensive heart disease with heart failure; I50.32 Chronic diastolic (congestive) heart failure; E78.5 Hyperlipidemia, unspecified; N40.1 Benign prostatic hyperplasia with lower urinary tract symptoms; I25.10 Atherosclerotic heart disease of native coronary artery without angina pectoris; K21.9 Gastro-esophageal reflux disease without esophagitis; Z91.041 Radiographic dye allergy status; Z95.1 Presence of aortocoronary bypass graft; Z95.810 Presence of automatic (implantable) cardiac defibrillator
CPT/HCPCS: 80048 ×2; 84484; 85025; 93005; 94640; 94760; 96361 ×3; 96374; 96375; 96376; 99285; G0378 ×4; 36415; J2920; J7611

== ENCOUNTER 2020-05-12 12:45 | Outpatient (CLI) | payer MEDICARE ==
--- NOTE | 2020-05-12 14:13 | ULT ---
ULTRASOUND ARTERIAL DOPPLER: 05/12/20 HISTORY: [place] arterial atherosclerosis with claudication. COMPARISON: None. FINDINGS: Real time grant scale, color and spectral analysis of the bilateral lower extremity arterial system is performed. RIGHT SIDE: Common femoral artery peak systolic velocity is 78 cm/s with monophasic waveform and spectral broaden ing. The deep femoral artery is patent. Proximal femoral artery peak systolic velocity measures 60 cm/s with monophasic waveform and spectral broadening. The mid femoral artery peak systolic velocity measures 19 cm/s with monophasic parvus tardus wavefor m. Minimal flow. The distal femoral artery peak systolic velocity measures 37 cm/s with a monophasic waveform and spec tral broadening delayed upstroke. Popliteal artery peak systolic velocity measures 20 cm/s with monophasic waveform, spectral broadenin g and parvus tardus. Anterior tibial artery peak systolic velocity measures 13 cm/s with parvus tardus waveform and spect ral broadening. Dorsalis pedis artery peak systolic velocity measures 13 cm/s with monophasic waveform and spectral b roadening. Posterior tibial artery peak systolic velocity measures 18 cm/s with spectral broadening and parvus t ardus. LEFT SIDE: Common femoral artery peak systolic velocity measures 66 cm/s with monophasic waveform and mild spect ral broadening. The deep femoral artery is patent. Proximal femoral artery peak systolic velocity measures 63 cm/s with monophasic waveform and mild spe ctral broadening. The mid femoral artery peak systolic velocity has delayed upstroke, spectral broadening and monophasi c waveform with peak systolic velocity of only 20 cm/s. The distal femoral artery peak systolic velocity is abnormally elevated at 175 cm/s with monophasic w aveform. Popliteal artery has minimal flow with peak systolic velocity 7.5 cm/s. No flow within the anterior tibial artery. Minimal flow within the posterior tibial artery with peak systolic velocity of 19 cm/s with parvus tardus waveform. Dorsalis pedis artery has a monophasic spectral broadening peak systolic velocity of only 6 cm/s. IMPRESSION: 1. Likely insufficient flow to the feet bilaterally. 2. Focal hemodynamically significant stenosis of the distal left femoral artery. 3. Occluded left anterior tibial artery. 4. Severely low peak systolic velocities within the mid femoral arteries bilaterally suggesting high grade stenosis just proximal to this. 5. Severe atherosclerotic plaque. POS: HOME
== END 2020-05-12 12:46 | disposition home or self-care (01) ==
LOC: BICULT 12:45
PROVIDERS: ATTEND Family Medicine
DX: I70.219 Atherosclerosis of native arteries of extremities with intermittent claudication, unspecified extremity (principal); I25.10 Atherosclerotic heart disease of native coronary artery without angina pectoris; I70.8 Atherosclerosis of other arteries
CPT/HCPCS: 93923

== ENCOUNTER 2020-06-23 15:49 | Emergency (ER) | payer MEDICARE ==
[2020-06-23 17:33] LABS: #Eosinphils 0.3 thou/uL (0.0-0.7); #Lymphocytes 1.4 thou/uL (1.20-3.40); #Monocytes 0.8 thou/uL (0.11-0.59); #Neutrophils 5.8 thou/uL (1.40-6.50); %Basophils 0.3 % (0.0-1.0); %Eosinophils 3.1 % (0.0-10.0); %Lymphocytes 16.9 % (21.0-51.0); %Monocytes 9.9 % (0.0-10.0); %Neutrophils 69.8 % (42.0-75.0); Hemoglobin 10.8 g/dL (14.0-18.0); Mean Corpuscular HGB CONC 32.9 g/dL (32.0-36.0); Mean Corpuscular Hemoglobin 32.2 pg (27.0-31.0); Mean Corpuscular Volume 97.9 fL (78.0-98.0); Mean Platelet Volume 7.8 fL (7.4-10.4); Platelet Count 220 thou/uL (130-400); RBC Distribution Width 14.6 % (11.5-14.5); Red Blood Cell (RBC) Count 3.37 mill/uL (4.70-6.10); White Blood Cell (WBC) Count 8.3 thou/uL (4.8-10.8)
--- NOTE | 2020-06-23 17:44 | ULT ---
Arterial duplex sonogram right lower extremity HISTORY: Right groin hematoma. Arterial femoral bypass approximately 4 months ago. FINDINGS: At the right groin, a lobular, very heterogeneous partially fluid density mass is 6.6 cm x 5.1 cm x 4.7 cm depth. There is subtle, irregular pulse flow at the deep margin, although the source of the vascular flow is not clear. No significant color Doppler flow was detectable within the largest fluid component of the hematoma. Due to prior surgery in this area and extensive overlying skin thickening and scar, the underlying na tive and bypass arterial structures were unable to be delineated at the site of hematoma. Good color and spectral Doppler flow is documented within the femoral, popliteal, dorsalis pedis, and anterior and posterior tibial arteries. IMPRESSION : Arterial flow documented to the distal right leg. Large heterogeneous hematoma at the right groin superficial to the common femoral vessels. Pulse Dopp ler flow is seen at the base of the hematoma, although extent of internal flow and direct origin and localization relative to the underlying [place] and bypass vessels are not clear. Please consider CT arteriogram of the right groin/leg for better characterization.
[2020-06-23 17:57] LABS: ALT (SGPT) 15 U/L (8-55); AST (SGOT) 32 U/L (5-34); Albumin 3.6 g/dL (3.4-4.8); Alkaline Phosphatase 59 U/L (40-110); Anion Gap 16 mmol/L (10-20); BUN (Urea Nitrogen) 27 mg/dL (8.4-25.7); Bilirubin, Total 0.5 mg/dL (0.2-1.2); Calc. Creatinine Clearance 0 mL/min (70-130); Calcium 8.7 mg/dL (7.8-10.44); Carbon Dioxide 19 mmol/L (23-31); Chloride 104 mmol/L (98-107); Globulin 3.8 g/dL (2.4-3.5); Glucose 100 mg/dL (83-110); Potassium 4.2 mmol/L (3.5-5.1); Protein, Total 7.4 g/dL (5.8-8.1); Sodium 135 mmol/L (136-145)
[2020-06-23] MEDS ORDERED: diphenhydrAMINE 50 MG/ML VIAL ONE (19:32)
[2020-06-23] MEDS ORDERED: methylPREDNISolone Sod Succ 40 MG VIAL ONE (19:32)
[2020-06-23] MEDS ORDERED: Famotidine/PF 20 mg/2ml Vial ONE (19:32)
--- NOTE | 2020-06-23 20:53 | CT ---
EXAM: CTA of the pelvis, and bilateral lower extremities HISTORY: Right inguinal mass and possible pseudoaneurysm; left foot pain. Peripheral vascular disease . COMPARISON: Right lower extremity ultrasound 06/23/2020 TECHNIQUE: Multiple contiguous axial images were obtained a CTA of the pelvis and bilateral lower ex tremities with contrast. Sagittal and coronal 3-D MIP reformats were performed. FINDINGS: Bowel: Scattered diverticula in the colon.. Reproductive organs :Unremarkable. Retroperitoneum: No lymphadenopathy Bones: Degenerative changes in the spine. Urinary bladder: Contains a Borrego catheter. Abdominal aorta. Normal caliber without evidence of dissection or aneurysmal dilatation. Moderate ath erosclerotic plaque in the distal aorta. Bilateral common iliac arteries: Moderate diffuse atherosclerotic disease. Internal iliac arteries: Severe diffuse atherosclerotic disease causing bilateral occlusion.. External iliac arteries: Mild diffuse atherosclerotic disease.. There is a fluid collection in the right inguinal region adjacent to the common femoral artery. This does not contain internal flow and no pseudoaneurysm is identified at this time. A small amount of hyperdensity is seen in the anterior aspect of the fluid collection which may represent more acute bl ood. Common femoral arteries: Moderate to severe bilateral atherosclerotic disease. This is greater on the left.. Profunda femoral arteries: Heavily calcified bilaterally but patent.. Superficial femoral arteries: There is occlusion of the [place] right artificial femoral artery. A byp ass graft is seen adjacent to the superficial femoral artery and extends down to the below the knee popliteal artery. This bypass graft is patent but has some wall thickening in the distal aspect of th e graft. There is a severely diseased left superficial femoral artery which appears occluded.. Popliteal arteries: Severe bilateral calcified atherosclerotic disease.. Right lower extremity: All 3 vessels are severely calcified and evaluation for flow within these calc ified vessels cannot be performed. Left lower extremity: All 3 vessels are severely calcified and evaluation for flow within these calci fied vessels cannot be performed. IMPRESSION: 1. Right inguinal hematoma without obvious pseudoaneurysm at this time. 2. Severe bilateral lower extremity atherosclerotic disease as above. 3. Patent right lower extremity bypass graft
== END 2020-06-23 23:45 | disposition home or self-care (01) ==
LOC: ERS 15:49
DX: M79.81 Nontraumatic hematoma of soft tissue (principal); I12.9 Hypertensive chronic kidney disease with stage 1 through stage 4 chronic kidney disease, or unspecified chronic kidney disease; N18.9 Chronic kidney disease, unspecified; D63.1 Anemia in chronic kidney disease; Z87.891 Personal history of nicotine dependence
CPT/HCPCS: 36415; 75635; 80053; 85025; 93923; 96374; 96375; J1200; J2920; S0028

== ENCOUNTER 2020-07-01 15:54 | Emergency (ER) | payer MEDICARE ==
[2020-07-01 17:32] LABS: #Eosinphils 0.2 thou/uL (0.0-0.7); #Monocytes 1.2 thou/uL (0.11-0.59); #Neutrophils 7.5 thou/uL (1.40-6.50); %Basophils 0.2 % (0.0-1.0); %Eosinophils 1.7 % (0.0-10.0); %Lymphocytes 10.4 % (21.0-51.0); %Monocytes 12.4 % (0.0-10.0); %Neutrophils 75.3 % (42.0-75.0); Mean Corpuscular HGB CONC 32.4 g/dL (32.0-36.0); Mean Corpuscular Hemoglobin 31.4 pg (27.0-31.0); Mean Corpuscular Volume 96.8 fL (78.0-98.0); Mean Platelet Volume 7.8 fL (7.4-10.4); Platelet Count 277 thou/uL (130-400); RBC Distribution Width 14.7 % (11.5-14.5)
[2020-07-01 17:50] LABS: ALT (SGPT) 15 U/L (8-55); AST (SGOT) 21 U/L (5-34); Albumin 3.6 g/dL (3.4-4.8); Alkaline Phosphatase 61 U/L (40-110); Anion Gap 13 mmol/L (10-20); BUN (Urea Nitrogen) 21 mg/dL (8.4-25.7); Bilirubin, Total 0.5 mg/dL (0.2-1.2); Calc. Creatinine Clearance 0 mL/min (70-130); Calcium 8.6 mg/dL (7.8-10.44); Carbon Dioxide 21 mmol/L (23-31); Chloride 107 mmol/L (98-107); Globulin 3.8 g/dL (2.4-3.5); Glucose 109 mg/dL (83-110); Potassium 4.3 mmol/L (3.5-5.1); Protein, Total 7.4 g/dL (5.8-8.1); Sodium 137 mmol/L (136-145)
[2020-07-01 18:12] LABS: CKMB 1.4 ng/mL (0-6.6)
--- NOTE | 2020-07-01 18:42 | ULT ---
EXAM: Right lower extremity venous Doppler HISTORY: Right groin hematoma post recent right femoral-popliteal artery bypass. Patient is having right lower extremity pain. COMPARISON: CTA abdomen and pelvis on 06/23/2020 FINDINGS: Grayscale, color-flow, Doppler evaluation, spectral analysis of the right lower extremity venous stru ctures is performed with 2-D imaging. The right common femoral, superficial femoral, popliteal, posterior tibial, proximal greater saphenous and profunda femoral veins are imaged. There is a large anechoic collection seen in the right inguinal region which measures 9.8 cm x 4.3 cm x 4.6 cm. This collection measured 9.9 cm x 6.6 cm x 3.5 cm on prior CTA examination. Color flow evaluation of this anechoic area does not demonstrate flow, and this likely represents a large hemato ma. Infection would be difficult to exclude on ultrasound exam. Due to the large anechoic collection in the right inguinal region, the right common femoral vein and profunda femoral veins are unable to be adequately visualized. Proximal aspect of the right lower extremity greater saphenous vein is also unable to be visualized. Thrombus in these venous structures is unable to be determined on this exam. There is otherwise normal luminal compressibility, flow, and augmentation in the remaining visualized deep venous structures of the right lower extremity. IMPRESSION: 1. Large anechoic collection right inguinal region most likely attributable to a hematoma. Infection would be difficult to exclude based on sonographic evaluation. 2. Nonvisualization of the right common femoral and profunda femoral veins secondary to the large ane choic collection in the right inguinal region. As a result, DVT in these venous structures is unable to be excluded. There is otherwise no evidence of a DVT involving the remaining visualized andrea p venous structures right lower extremity.
--- NOTE | 2020-07-01 19:08 | RAD ---
RADIOGRAPH CHEST 1 VIEW: Date: 07/01/20 Time: 6:09 p.m. HISTORY: 85-year-old male with history of coronary artery disease. COMPARISON: 05/01/20 FINDINGS: Comparison is somewhat difficult because of differences in positioning, with x-ray beam angled cranio caudally; and shallow inspiration. Again noted is the AICD with left sided generator obscuring a large portion of the left lung. There i s cardiomegaly. Interstitial markings are diffusely prominent, probably chronic. No large consolidati on. No large pneumothorax, but the patient's chin partially obscures bilateral lung apices. Sternotom y wires. Ectasia and tortuosity of the thoracic aorta. Lateral costophrenic angles are not effaced. Probably no major interval change. IMPRESSION: 1. Cardiomegaly. 2. Prominent interstitial markings, probably chronic. 3. Previous open heart surgery. 4. Automatic implantable cardioverter/defibrillator. 5. Ectasia and tortuosity of the thoracic aorta. MARCELINA [] POS: JIN
== END 2020-07-01 21:02 | disposition home or self-care (01) ==
LOC: ERS 15:54
DX: R22.41 Localized swelling, mass and lump, right lower limb (principal); I11.0 Hypertensive heart disease with heart failure; I50.9 Heart failure, unspecified; I25.2 Old myocardial infarction; E78.5 Hyperlipidemia, unspecified; Z87.891 Personal history of nicotine dependence; Z79.82 Long term (current) use of aspirin; Z79.01 Long term (current) use of anticoagulants; Z79.899 Other long term (current) drug therapy
CPT/HCPCS: 36415; 71045; 80053; 82553; 83880; 84484; 85025; 93005